=== PATIENT | female | born 1955 | race Two or more races ===

== ENCOUNTER 2016-05-22 17:03 | Inpatient (IN) | payer MEDICARE, MEDICAID ==
[~2016-05-22] VITALS: Ht 167.6 cm; Wt 83.0 kg
[~2016-05-22 17:03] MED LIST: CLON0.3T PO; CRAN450T3 PO; DOCU-25 PO; HYDR100T27 PO; HYDR25TA4 PO; LABE300T PO; LEVO750T21 PO; MAGN400O6 PO; MELA1TAB10 PO; NIFE60TA69 PO; POTA-88 PO; [UNRECOGNIZED DRUG - CODE] PO
[2016-05-22 18:14] LABS: ADD UA MICROSCOPIC YES; KETONES,URINE Trace (NEGATIVE); LEUKOCYTE ESTERASE ,URINE Moderate (NEGATIVE); PH,URINE 5.5 (5.0-8.0)
[2016-05-22 18:16] LABS: BASOPHILS % (AUTO) 0.6 % (0.0-2.0); DIFF TOTAL % 100 %; EOSINOPHILS # (AUTO) 0.1 /CMM (0.0-0.7); EOSINOPHILS % (AUTO) 2.2 % (0.0-6.0); HEMATOCRIT 33 % (33-45); HEMOGLOBIN 10.7 g/dL (11.5-14.8); LYMPHOCYTES # (AUTO) 2.5 /CMM (0.8-4.8); MEAN CORPUSCULAR HEMOGLOBIN 27 PG (26.0-33.0); MEAN CORPUSCULAR HGB CONC 33 g/dl (31.0-36.0); MEAN CORPUSCULAR VOLUME 81 fL (82-100); MONOCYTES # (AUTO) 0.5 /CMM (0.1-1.30); MONOCYTES % (AUTO) 7.1 % (2.0-12.0); NEUTROPHILS # (AUTO) 3.6 /CMM (1.8-8.9); NEUTROPHILS % (AUTO) 53.1 % (43.0-81.0); PLATELET COUNT (AUTO) 290 /CMM (150-450); RED BLOOD CELL COUNT(AUTO) 4.02 MIL/uL (4.0-5.2); WHITE BLOOD COUNT (AUTO) 6.7 K/uL (4.3-11.0)
[2016-05-22] MEDS ORDERED: BISA10SU8 RC (18:18)
[2016-05-22] MEDS ORDERED: NA P133E RC (18:18)
[2016-05-22 18:24] LABS: RBC,URINE 0-2 /HPF (0-2)
[2016-05-22 18:25] LABS: ADD URINE CULTURE YES; WBC,URINE 81-100 /HPF (0-3)
[2016-05-22] MEDS ORDERED: [UNRECOGNIZED DRUG - CODE] PO (18:34)
[2016-05-22] MEDS ORDERED: POTA8TAB3 PO (18:34)
[2016-05-22] MEDS ORDERED: DEXT1CAP3 PO (18:34)
[2016-05-22] MEDS ORDERED: METF500T4 PO (18:34)
[2016-05-22] MEDS ORDERED: SIMV20TA2 PO (18:34)
[2016-05-22] MEDS ORDERED: INSU100V11 SQ (18:42)
[2016-05-22 18:43] LABS: ANION GAP 16 (5-14); CALCIUM, SERUM 9.4 mg/dL (8.5-10.1); CARBON DIOXIDE 27 mmol/L (21-32); CHLORIDE 100 mmol/L (98-107); CREATININE 1.4 mg/dL (0.6-1.3); GFR 38 mL/min (>60); GLUCOSE 120 mg/dL (74-106); POTASSIUM 3.3 mmol/L (3.5-5.1); SODIUM SERUM 139 mmol/L (136-145); UREA NITROGEN, BLOOD 20 mg/dL (7-18)
[2016-05-22 18:46] LABS: INR 0.97 (0.87-1.13); PROTHROMBIN TIME 10.2 SECS (9.5-12.7)
[2016-05-22 18:49] LABS: ALANINE AMINOTRANSFERASE 36 U/L (12-78); ALBUMIN 3.9 g/dL (3.4-5.0); ASPARTATE AMINOTRANSFERASE 17 U/L (15-37); BILIRUBIN,DIRECT 0.1 mg/dL (0.0-0.2); BILIRUBIN,TOTAL 0.4 mg/dL (0.2-1.0); INDIRECT BILIRUBIN 0.3 mg/dL (0.0-1.1); TOTAL PROTEIN, SERUM 7.7 g/dL (6.4-8.2)
[2016-05-22 18:51] LABS: TROPONIN I < 0.017 ng/mL (0.00-0.056)
[2016-05-22] MEDS ORDERED: [UNRECOGNIZED DRUG - CODE] PO (18:51)
[2016-05-22] MEDS ORDERED: VITA1CAP PO (18:51)
[2016-05-22] MEDS ORDERED: FURO20TA PO (18:51)
[2016-05-22] MEDS ORDERED: MECL-102 PO (18:53)
[2016-05-22] MEDS ORDERED: CEFTRIAXONE 1GM BAG (ER ONLY) 1 GM/50 ML PIGGYBACK IV ONE (19:00)
[2016-05-22] MEDS ORDERED: CEFTRIAXONE 1GM BAG (ER ONLY) 50 ML IV ONE (19:03)
[2016-05-22] MEDS ORDERED: IV SET PRIMARY PUMP SET 1 EA INFUS.SET MC ONE (19:03)
[2016-05-22 19:30] VITALS: BP 120/78
[2016-05-22 19:30] LABS: LACTIC ACID 1.9 mmol/L (0.4-2.0)
[2016-05-22 20:00] VITALS: BP 120/78
[2016-05-22] MEDS ORDERED: IV NS 0.9% 1,000 ML IV PRN (21:55)
[2016-05-22] MEDS ORDERED: ACETAMINOPHEN 325 MG TABLET PO PRN (22:00)
[2016-05-22] MEDS ORDERED: ENOXAPARIN SODIUM 40 MG/0.4 ML DISP.SYRIN SQ SCH (22:00)
[2016-05-22] MEDS ORDERED: Z GUARD REMEDY 2 OZ OINT TP PRN (22:00)
[2016-05-22] MEDS ORDERED: MAGNESIUM HYDROXIDE 30 ML UDC PO PRN (22:00)
[2016-05-22] MEDS ORDERED: HYDROCODONE/APAP 5/325MG 1 EACH TABLET PO PRN (22:00)
[2016-05-22] MEDS ORDERED: ZOLPIDEM TARTRATE 5 MG TABLET PO PRN (22:00)
[2016-05-22] MEDS: PANTOPRAZOLE 40 MG TABLET.DR PO SCH (22:00)
[2016-05-22] MEDS ORDERED: MAG HYDROX/AL HYDROX/SIMETH 30 ML UDC PO PRN (22:00)
[2016-05-22] MEDS ORDERED: ENOXAPARIN SODIUM 40 MG/0.4 ML DISP.SYRIN SQ ONE (22:12)
[2016-05-22] MEDS ORDERED: IV NS 0.9% 1,000 ML ONE (22:13)
[2016-05-23 07:11] LABS: BASOPHILS % (AUTO) 0.6 % (0.0-2.0); DIFF TOTAL % 100 %; EOSINOPHILS # (AUTO) 0.1 /CMM (0.0-0.7); EOSINOPHILS % (AUTO) 2.5 % (0.0-6.0); HEMATOCRIT 32 % (33-45); HEMOGLOBIN 10.7 g/dL (11.5-14.8); LYMPHOCYTES # (AUTO) 1.8 /CMM (0.8-4.8); LYMPHOCYTES % (AUTO) 35.3 % (20.0-44.0); MEAN CORPUSCULAR HEMOGLOBIN 28 PG (26.0-33.0); MEAN CORPUSCULAR HGB CONC 34 g/dl (31.0-36.0); MEAN CORPUSCULAR VOLUME 82 fL (82-100); MONOCYTES # (AUTO) 0.4 /CMM (0.1-1.30); MONOCYTES % (AUTO) 7.5 % (2.0-12.0); NEUTROPHILS # (AUTO) 2.7 /CMM (1.8-8.9); NEUTROPHILS % (AUTO) 54.1 % (43.0-81.0); PLATELET COUNT (AUTO) 285 /CMM (150-450); WHITE BLOOD COUNT (AUTO) 5.1 K/uL (4.3-11.0)
[2016-05-23 07:18] LABS: ALBUMIN 3.6 g/dL (3.4-5.0); BILIRUBIN,TOTAL 0.4 mg/dL (0.2-1.0); CALCIUM, SERUM 9.2 mg/dL (8.5-10.1); PHOSPHORUS 3.2 mg/dL (2.5-4.9); TOTAL PROTEIN, SERUM 7.4 g/dL (6.4-8.2)
[2016-05-23 08:00] VITALS: BP 144/90
[2016-05-23] MEDS ORDERED: POTASSIUM CHLORIDE 20 MEQ TAB.PRT.SR PO ONE (08:45)
[2016-05-23] MEDS ORDERED: SECONDARY IV SET 1 EA INFUS.SET MC ONE (08:49)
[2016-05-23] MEDS: Magnesium 1GM/D5W 100ML PREMIX 100 ML IV SCH ×4 (08:52→13:21)
[2016-05-23] MEDS: PANTOPRAZOLE 40 MG TABLET.DR PO SCH (08:52)
[2016-05-23 09:36] VITALS: BP 144/95
[2016-05-23] MEDS: CEFTRIAXONE 1 G in IV D5W 50 ML IV SCH (09:46)
[2016-05-23] MEDS ORDERED: Z GUARD REMEDY 2 OZ OINT TP PRN (15:00)
[2016-05-23] MEDS: SIMVASTATIN 20 MG TABLET PO SCH ×2 (15:30→21:56)
[2016-05-23] MEDS ORDERED: MECLIZINE HCL 25 MG TABLET PO PRN (15:30)
[2016-05-23] MEDS ORDERED: NIFEdipine XL 60 MG TAB PO SCH (15:30)
[2016-05-23] MEDS: BISACODYL SUPP (10 MG) 10 MG/SUPP.RECT SUPP.RECT RC SCH (15:30)
[2016-05-23] MEDS: SENNOSIDES 8.6 MG TABLET PO SCH ×2 (15:30→21:56)
[2016-05-23] MEDS: MAGNESIUM HYDROXIDE 30 ML UDC PO SCH (15:30)
[2016-05-23] MEDS ORDERED: NA PHOS,M-B/NA PHOS,DI-BA 1 EA ENEMA RC PRN (15:30)
[2016-05-23 16:00] VITALS: BP 152/92
[2016-05-23] MEDS: DOCUSATE SODIUM 100 MG CAPSULE PO SCH (16:50)
[2016-05-23] MEDS: METFORMIN 500 MG TABLET PO SCH (16:51)
[2016-05-23] MEDS: hydrALAZINE HCL 50 MG TABLET PO SCH (16:51)
[2016-05-23] MEDS ORDERED: Medication Not On Formulary EA (Cranberry Extract (Cranberry) 450 MG) PO SCH (17:00)
[2016-05-23] MEDS: CLONIDINE HCL 0.1 MG TABLET PO SCH (17:28)
[2016-05-23 20:00] VITALS: BP 133/81
[2016-05-23] MEDS: NIFEdipine (10MG) 10 MG CAPSULE PO SCH (21:57)
[2016-05-23] MEDS: ENOXAPARIN SODIUM 40 MG/0.4 ML DISP.SYRIN SQ SCH (21:59)
[2016-05-23 22:00] VITALS: BP 143/92
[2016-05-24] MEDS: CLONIDINE HCL 0.1 MG TABLET PO SCH ×3 (01:35→16:32)
[2016-05-24] MEDS ORDERED: NIFEdipine (10MG) 10 MG CAPSULE ONE ×2 (05:27→05:31)
[2016-05-24] MEDS: NIFEdipine (10MG) 10 MG CAPSULE PO SCH ×3 (05:44→21:00)
[2016-05-24 06:46] LABS: BASOPHILS % (AUTO) 0.3 % (0.0-2.0); DIFF TOTAL % 100 %; EOSINOPHILS # (AUTO) 0.1 /CMM (0.0-0.7); HEMATOCRIT 37 % (33-45); HEMOGLOBIN 12.2 g/dL (11.5-14.8); LYMPHOCYTES % (AUTO) 35.7 % (20.0-44.0); MEAN CORPUSCULAR HEMOGLOBIN 28 PG (26.0-33.0); MEAN CORPUSCULAR HGB CONC 33 g/dl (31.0-36.0); MEAN CORPUSCULAR VOLUME 84 fL (82-100); MONOCYTES # (AUTO) 0.4 /CMM (0.1-1.30); MONOCYTES % (AUTO) 7.5 % (2.0-12.0); NEUTROPHILS % (AUTO) 54.5 % (43.0-81.0); PLATELET COUNT (AUTO) 304 /CMM (150-450); RED BLOOD CELL COUNT(AUTO) 4.36 MIL/uL (4.0-5.2); WHITE BLOOD COUNT (AUTO) 5.5 K/uL (4.3-11.0)
[2016-05-24 06:51] LABS: POTASSIUM 3.1 mmol/L (3.5-5.1)
[2016-05-24 08:00] VITALS: BP 147/101
[2016-05-24] MEDS: METFORMIN 500 MG TABLET PO SCH ×2 (08:03→16:32)
[2016-05-24] MEDS: PANTOPRAZOLE 40 MG TABLET.DR PO SCH (08:03)
[2016-05-24] MEDS: hydrALAZINE HCL 50 MG TABLET PO SCH ×3 (08:03→16:32)
[2016-05-24] MEDS: DOCUSATE SODIUM 100 MG CAPSULE PO SCH (08:03)
[2016-05-24] MEDS: MAGNESIUM HYDROXIDE 30 ML UDC PO SCH (08:03)
[2016-05-24] MEDS: VITAMIN B COMP W-C 1 TAB TABLET PO SCH (08:03)
[2016-05-24] MEDS: BISACODYL SUPP (10 MG) 10 MG/SUPP.RECT SUPP.RECT RC SCH (08:04)
[2016-05-24] MEDS: CEFTRIAXONE 1 G in IV D5W 50 ML IV SCH (08:45)
[2016-05-24] MEDS ORDERED: POTASSIUM CHLORIDE 20 MEQ POWDER PACKET PO ONE (12:30)
[2016-05-24 16:00] VITALS: BP 132/99
[2016-05-24] MEDS ORDERED: LEVOFLOXACIN (500MG) 500 MG TABLET PO SCH (17:00)
[2016-05-24 20:00] VITALS: BP 127/89
[2016-05-24] MEDS: ENOXAPARIN SODIUM 40 MG/0.4 ML DISP.SYRIN SQ SCH (21:01)
[2016-05-24] MEDS: SENNOSIDES 8.6 MG TABLET PO SCH (21:03)
[2016-05-24] MEDS: SIMVASTATIN 20 MG TABLET PO SCH (21:03)
[2016-05-24] MEDS: ONDANSETRON HCL/PF 4 MG/2 ML VIAL IVP PRN ×2 (21:42→21:58)
[2016-05-24] MEDS: MUPIROCIN OINT 2% 22 GM TUBE SCH (22:03)
[2016-05-25] MEDS: CLONIDINE HCL 0.1 MG TABLET PO SCH ×2 (01:29→08:56)
[2016-05-25] MEDS: NIFEdipine (10MG) 10 MG CAPSULE PO SCH (05:09)
[2016-05-25 08:00] VITALS: BP_SYST 112; BP_SYST 123; BP_DIAS 77; BP_DIAS 84
[2016-05-25] MEDS: MAGNESIUM HYDROXIDE 30 ML UDC PO SCH (08:55)
[2016-05-25] MEDS: PANTOPRAZOLE 40 MG TABLET.DR PO SCH (08:55)
[2016-05-25] MEDS: BISACODYL SUPP (10 MG) 10 MG/SUPP.RECT SUPP.RECT RC SCH (08:55)
[2016-05-25 08:56] VITALS: BP 112/77
[2016-05-25] MEDS: hydrALAZINE HCL 50 MG TABLET PO SCH (08:56)
[2016-05-25] MEDS: METFORMIN 500 MG TABLET PO SCH (08:56)
[2016-05-25] MEDS: VITAMIN B COMP W-C 1 TAB TABLET PO SCH (08:56)
[2016-05-25] MEDS: DOCUSATE SODIUM 100 MG CAPSULE PO SCH (08:56)
[2016-05-25] MEDS: MUPIROCIN OINT 2% 22 GM TUBE SCH (08:58)
== END 2016-05-25 11:15 | DRG 689 ==
LOC: ER 17:05 → MED 19:49
PROVIDERS: ADMIT Internal Medicine; ATTEND Internal Medicine
DX: N39.0 Urinary tract infection, site not specified (principal); N17.0 Acute kidney failure with tubular necrosis; I69.854 Hemiplegia and hemiparesis following other cerebrovascular disease affecting left non-dominant side; Z93.1 Gastrostomy status; R13.10 Dysphagia, unspecified; E83.42 Hypomagnesemia; E87.6 Hypokalemia; E66.9 Obesity, unspecified; I10 Essential (primary) hypertension; K21.9 Gastro-esophageal reflux disease without esophagitis; D50.9 Iron deficiency anemia, unspecified; Z22.322 Carrier or suspected carrier of Methicillin resistant Staphylococcus aureus; B96.1 Klebsiella pneumoniae [K. pneumoniae] as the cause of diseases classified elsewhere
CPT/HCPCS: 36415; 70450-TC; 71010-TC; 80048-TC; 80053-TC; 80061-TC; 80076-TC; 81000-TC; 83605-TC; 83735-TC; 84100-TC; 84484-TC; 85025-TC; 85730-TC; 87040-TC; 87081-TC; 87086-TC; 87186-TC; 97001-TC; 97003-TC; A4606; J0696; J1650; J2405; J3475; J7030; J7060; Z7610

== ENCOUNTER 2016-07-08 21:38 | Emergency (ER) | payer MEDICARE, OTHER ==
[~2016-07-08 21:38] MED LIST changes: +BISA10SU8 RC; +DEXT1CAP3 PO; +FURO-145 PO; +INSU100V11 SQ; -LEVO750T21 PO; +MECL-102 PO; -MELA1TAB10 PO; +METF500T4 PO; +NA P133E RC; +NITR100C6 PO; -POTA-88 PO; +POTA8TAB3 PO; +SENN8.6T60 PO; +SIMV20TA2 PO; +VITA1CAP PO; -[UNRECOGNIZED DRUG - CODE] PO
[2016-07-08] MEDS ORDERED: CLONIDINE HCL 0.1 MG TABLET ONE (22:41)
[2016-07-08] MEDS ORDERED: LABETALOL HCL (100MG) 100 MG TABLET ONE (22:41)
[2016-07-08] MEDS ORDERED: CLONIDINE HCL 0.1 MG TABLET PO ONE (23:00)
[2016-07-08] MEDS ORDERED: LABETALOL HCL (100MG) 100 MG TABLET PO ONE (23:00)
== END 2016-07-09 02:30 | disposition home or self-care (01) ==
DX: F43.21 Adjustment disorder with depressed mood (principal); I10 Essential (primary) hypertension; Z86.73 Personal history of transient ischemic attack (TIA), and cerebral infarction without residual deficits; Z79.4 Long term (current) use of insulin; Z88.8 Allergy status to other drugs, medicaments and biological substances
CPT/HCPCS: 99283; A4606

== ENCOUNTER 2016-07-17 20:36 | Inpatient (IN) | payer MEDICARE, OTHER ==
[~2016-07-17] VITALS: Ht 165.1 cm; Wt 73.0 kg
[2016-07-17 20:53] LABS: BASOPHILS % (AUTO) 0.4 % (0.0-2.0); DIFF TOTAL % 100 %; EOSINOPHILS # (AUTO) 0.1 /CMM (0.0-0.7); EOSINOPHILS % (AUTO) 0.6 % (0.0-6.0); HEMATOCRIT 27 % (33-45); HEMOGLOBIN 9.1 g/dL (11.5-14.8); LYMPHOCYTES # (AUTO) 1.9 /CMM (0.8-4.8); LYMPHOCYTES % (AUTO) 19.3 % (20.0-44.0); MEAN CORPUSCULAR HEMOGLOBIN 27 PG (26.0-33.0); MEAN CORPUSCULAR HGB CONC 33 g/dl (31.0-36.0); MEAN CORPUSCULAR VOLUME 80 fL (82-100); MONOCYTES # (AUTO) 0.6 /CMM (0.1-1.30); MONOCYTES % (AUTO) 6.2 % (2.0-12.0); NEUTROPHILS # (AUTO) 7.1 /CMM (1.8-8.9); NEUTROPHILS % (AUTO) 73.5 % (43.0-81.0); PLATELET COUNT (AUTO) 497 /CMM (150-450); RED BLOOD CELL COUNT(AUTO) 3.43 MIL/uL (4.0-5.2); WHITE BLOOD COUNT (AUTO) 9.7 K/uL (4.3-11.0)
[2016-07-17 21:01] LABS: ANION GAP 21 (5-14); CALCIUM, SERUM 9.6 mg/dL (8.5-10.1); CARBON DIOXIDE 20 mmol/L (21-32); CHLORIDE 107 mmol/L (98-107); GFR 25 mL/min (>60); GLUCOSE 92 mg/dL (74-106); POTASSIUM 3.7 mmol/L (3.5-5.1); SODIUM SERUM 144 mmol/L (136-145); UREA NITROGEN, BLOOD 60 mg/dL (7-18)
[2016-07-17 21:07] LABS: KETONES,URINE Trace (NEGATIVE); LEUKOCYTE ESTERASE ,URINE Negative (NEGATIVE)
[2016-07-17 21:09] LABS: ALANINE AMINOTRANSFERASE 28 U/L (12-78); ALBUMIN 3.5 g/dL (3.4-5.0); ASPARTATE AMINOTRANSFERASE 20 U/L (15-37); BILIRUBIN,DIRECT 0.2 mg/dL (0.0-0.2); BILIRUBIN,TOTAL 0.6 mg/dL (0.2-1.0); INDIRECT BILIRUBIN 0.4 mg/dL (0.0-1.1); SALICYLATE 3.1 mg/dL (2.8-20.0); TOTAL PROTEIN, SERUM 8.5 g/dL (6.4-8.2)
[2016-07-17 21:11] LABS: ACETAMINOPHEN 0 ug/ml (10-30)
[2016-07-17 21:15] LABS: ADD UA MICROSCOPIC YES
[2016-07-17 21:48] LABS: ADD URINE CULTURE YES; RBC,URINE 0-2 /HPF (0-2); WBC,URINE 0-2 /HPF (0-3)
[2016-07-17 21:51] LABS: CANNABINOID, URINE NEGATIVE (NEGATIVE); PHENCYCLIDINE SCREEN,URINE NEGATIVE (NEGATIVE)
[2016-07-17] MEDS ORDERED: IV NS 0.9% 1,000 ML BAG IV ONE (22:30)
[2016-07-17] MEDS ORDERED: IV SET PRIMARY 1 EA INFUS.SET MC ONE (22:40)
[2016-07-17] MEDS ORDERED: IV NS 0.9% 1,000 ML ONE (22:40)
[2016-07-17] MEDS ORDERED: HYDR-552 PO (23:30)
[2016-07-17] MEDS ORDERED: TYL2T PO (23:30)
[2016-07-17] MEDS ORDERED: INSU100V11 SQ (23:30)
[2016-07-18] MEDS ORDERED: ACETAMINOPHEN 325 MG TABLET PO PRN ×2 (01:30→12:00)
[2016-07-18] MEDS ORDERED: MAG HYDROX/AL HYDROX/SIMETH 30 ML UDC PO PRN (01:30)
[2016-07-18] MEDS ORDERED: MAGNESIUM HYDROXIDE 30 ML UDC PO PRN ×2 (01:30→22:00)
[2016-07-18 02:55] VITALS: BP 143/86
[2016-07-18 07:17] LABS: CREATININE 1.6 mg/dL (0.6-1.3)
[2016-07-18] MEDS ORDERED: CRAN425C PO (08:13)
[2016-07-18] MEDS ORDERED: MAGN400O6 PO (08:13)
[2016-07-18] MEDS ORDERED: MULT-24 PO (08:13)
[2016-07-18 08:46] VITALS: BP 143/87
[2016-07-18] MEDS ORDERED: HYDROCODONE/APAP 5/325MG 1 EACH TABLET PO PRN (12:00)
[2016-07-18] MEDS ORDERED: DEXTROSE 50%-WATER 50 ML DISP.SYRIN IV PRN (12:00)
[2016-07-18] MEDS ORDERED: Medication Not On Formulary EA (Cranberry Extract (Cranberry) 425 MG) PO SCH (12:00)
[2016-07-18] MEDS ORDERED: INSULIN REGULAR, HUMAN 100 UNIT/ML 3 ML VIAL SQ PRN (12:00)
[2016-07-18] MEDS ORDERED: NA PHOS,M-B/NA PHOS,DI-BA 1 EA ENEMA RC PRN (12:00)
[2016-07-18] MEDS: BLOOD SUGAR DIAGNOSTIC 1 EACH STRIP IN SCH ×3 (12:25→21:01)
[2016-07-18] MEDS ORDERED: LABETALOL HCL 300 MG TABLET PO SCH (13:00)
[2016-07-18] MEDS: hydrALAZINE HCL 50 MG TABLET PO SCH ×2 (13:57→17:28)
[2016-07-18] MEDS: MULTIVITAMINS,THERAPEUTIC 1 UDTAB TABLET PO SCH (13:58)
[2016-07-18] MEDS: METFORMIN 500 MG TABLET PO SCH ×2 (13:58→17:31)
[2016-07-18] MEDS: CLONIDINE HCL 0.1 MG TABLET PO SCH ×2 (13:59→21:00)
[2016-07-18] MEDS ORDERED: NIFEdipine XL (30MG) 30 MG TAB PO SCH (14:18)
[2016-07-18 15:59] VITALS: BP 138/88
[2016-07-18 20:00] VITALS: BP 132/81
[2016-07-18] MEDS: LABETALOL HCL (100MG) 100 MG TABLET PO SCH (21:00)
[2016-07-18] MEDS: SENNOSIDES 8.6 MG TABLET PO SCH (21:00)
[2016-07-18] MEDS: NIFEdipine XL (30MG) 30 MG TAB PO SCH ×2 (21:00→21:03)
[2016-07-18] MEDS: QUETIAPINE FUMARATE 25 MG TABLET PO SCH (21:01)
[2016-07-18] MEDS: SIMVASTATIN 20 MG TABLET PO SCH (21:01)
[2016-07-19] MEDS: CLONIDINE HCL 0.1 MG TABLET PO SCH ×3 (04:53→21:00)
[2016-07-19] MEDS: NIFEdipine XL (30MG) 30 MG TAB PO SCH ×3 (04:54→21:00)
[2016-07-19] MEDS: LABETALOL HCL (100MG) 100 MG TABLET PO SCH ×3 (04:54→21:00)
[2016-07-19] MEDS: BLOOD SUGAR DIAGNOSTIC 1 EACH STRIP IN SCH ×4 (07:45→22:02)
[2016-07-19 08:00] VITALS: BP 101/67
[2016-07-19] MEDS: DOCUSATE SODIUM 100 MG CAPSULE PO SCH (08:07)
[2016-07-19] MEDS: METFORMIN 500 MG TABLET PO SCH (08:07)
[2016-07-19] MEDS: VIT B CMPLX 3/FA/VIT C/BIOTIN 1 TAB TABLET PO SCH (08:07)
[2016-07-19] MEDS: VENLAFAXINE XR 75 MG CAP.SR.24H PO SCH (08:07)
[2016-07-19] MEDS: MULTIVITAMINS,THERAPEUTIC 1 UDTAB TABLET PO SCH (08:07)
[2016-07-19] MEDS: hydrALAZINE HCL 50 MG TABLET PO SCH ×3 (08:08→17:04)
[2016-07-19] MEDS ORDERED: HYDROCHLOROTHIAZIDE 25 MG TABLET PO SCH (09:00)
[2016-07-19] MEDS ORDERED: POTASSIUM CHLORIDE 20 MEQ TAB.PRT.SR PO SCH (09:00)
[2016-07-19] MEDS ORDERED: BISACODYL SUPP (10 MG) 10 MG/SUPP.RECT SUPP.RECT RC SCH (12:00)
[2016-07-19 12:24] VITALS: BP 138/98
[2016-07-19 16:00] VITALS: BP 136/93
[2016-07-19 17:04] VITALS: BP 121/86
[2016-07-19 20:00] VITALS: BP 126/87
[2016-07-19] MEDS: SIMVASTATIN 20 MG TABLET PO SCH (22:00)
[2016-07-19] MEDS: QUETIAPINE FUMARATE 25 MG TABLET PO SCH (22:00)
[2016-07-19] MEDS: SENNOSIDES 8.6 MG TABLET PO SCH (22:00)
[2016-07-20] MEDS: NIFEdipine XL (30MG) 30 MG TAB PO SCH ×4 (05:00→21:00)
[2016-07-20] MEDS: LABETALOL HCL (100MG) 100 MG TABLET PO SCH ×4 (05:00→21:00)
[2016-07-20] MEDS: CLONIDINE HCL 0.1 MG TABLET PO SCH ×4 (05:00→21:00)
[2016-07-20 07:40] VITALS: BP 156/89
[2016-07-20] MEDS: BLOOD SUGAR DIAGNOSTIC 1 EACH STRIP IN SCH ×4 (07:55→22:47)
[2016-07-20 08:00] LABS: ALBUMIN 3.6 g/dL (3.4-5.0); BASOPHILS % (AUTO) 0.4 % (0.0-2.0); BILIRUBIN,TOTAL 0.6 mg/dL (0.2-1.0); CALCIUM, SERUM 10.1 mg/dL (8.5-10.1); CREATININE 1.3 mg/dL (0.6-1.3); DIFF TOTAL % 100 %; EOSINOPHILS % (AUTO) 0.4 % (0.0-6.0); HEMATOCRIT 27 % (33-45); HEMOGLOBIN 9.1 g/dL (11.5-14.8); LYMPHOCYTES # (AUTO) 1.6 /CMM (0.8-4.8); LYMPHOCYTES % (AUTO) 17.3 % (20.0-44.0); MEAN CORPUSCULAR HEMOGLOBIN 29 PG (26.0-33.0); MEAN CORPUSCULAR HGB CONC 34 g/dl (31.0-36.0); MEAN CORPUSCULAR VOLUME 87 fL (82-100); MONOCYTES # (AUTO) 0.7 /CMM (0.1-1.30); MONOCYTES % (AUTO) 7.2 % (2.0-12.0); NEUTROPHILS % (AUTO) 74.7 % (43.0-81.0); PHOSPHORUS 2.7 mg/dL (2.5-4.9); PLATELET COUNT (AUTO) 395 /CMM (150-450); POTASSIUM 3.4 mmol/L (3.5-5.1); RED BLOOD CELL COUNT(AUTO) 3.08 MIL/uL (4.0-5.2); TOTAL PROTEIN, SERUM 8.8 g/dL (6.4-8.2); WHITE BLOOD COUNT (AUTO) 9.4 K/uL (4.3-11.0)
[2016-07-20] MEDS: hydrALAZINE HCL 50 MG TABLET PO SCH ×3 (08:55→17:47)
[2016-07-20] MEDS: DOCUSATE SODIUM 100 MG CAPSULE PO SCH (08:58)
[2016-07-20] MEDS: VIT B CMPLX 3/FA/VIT C/BIOTIN 1 TAB TABLET PO SCH (08:58)
[2016-07-20] MEDS: VENLAFAXINE XR 75 MG CAP.SR.24H PO SCH (08:59)
[2016-07-20] MEDS: MULTIVITAMINS,THERAPEUTIC 1 UDTAB TABLET PO SCH (08:59)
[2016-07-20] MEDS: POTASSIUM CHLORIDE 20 MEQ TAB.PRT.SR PO SCH (10:11)
[2016-07-20 16:00] VITALS: BP 105/104
[2016-07-20 20:00] VITALS: BP 110/68
[2016-07-20] MEDS: SENNOSIDES 8.6 MG TABLET PO SCH (22:41)
[2016-07-20] MEDS: QUETIAPINE FUMARATE 25 MG TABLET PO SCH (22:42)
[2016-07-20] MEDS: SIMVASTATIN 20 MG TABLET PO SCH (22:43)
[2016-07-21] MEDS: CLONIDINE HCL 0.1 MG TABLET PO SCH ×3 (05:00→21:43)
[2016-07-21] MEDS: LABETALOL HCL (100MG) 100 MG TABLET PO SCH ×3 (05:00→21:42)
[2016-07-21] MEDS: NIFEdipine XL (30MG) 30 MG TAB PO SCH ×3 (05:00→21:44)
[2016-07-21] MEDS: BLOOD SUGAR DIAGNOSTIC 1 EACH STRIP IN SCH ×4 (07:53→21:44)
[2016-07-21] MEDS: hydrALAZINE HCL 50 MG TABLET PO SCH ×3 (08:40→18:04)
[2016-07-21] MEDS: MULTIVITAMINS,THERAPEUTIC 1 UDTAB TABLET PO SCH (08:40)
[2016-07-21] MEDS: VENLAFAXINE XR 75 MG CAP.SR.24H PO SCH (08:41)
[2016-07-21] MEDS: DOCUSATE SODIUM 100 MG CAPSULE PO SCH (08:41)
[2016-07-21] MEDS: VIT B CMPLX 3/FA/VIT C/BIOTIN 1 TAB TABLET PO SCH (08:41)
[2016-07-21] MEDS: POTASSIUM CHLORIDE 20 MEQ TAB.PRT.SR PO SCH (08:42)
[2016-07-21 10:03] VITALS: BP 122/88
[2016-07-21 15:42] VITALS: BP 115/67
[2016-07-21 20:06] VITALS: BP 121/87
[2016-07-21] MEDS: QUETIAPINE FUMARATE 25 MG TABLET PO SCH (21:43)
[2016-07-21] MEDS: SENNOSIDES 8.6 MG TABLET PO SCH (21:43)
[2016-07-21] MEDS: SIMVASTATIN 20 MG TABLET PO SCH (21:44)
[2016-07-22] MEDS: NIFEdipine XL (30MG) 30 MG TAB PO SCH ×3 (06:50→21:00)
[2016-07-22] MEDS: CLONIDINE HCL 0.1 MG TABLET PO SCH ×3 (06:51→21:00)
[2016-07-22] MEDS: LABETALOL HCL (100MG) 100 MG TABLET PO SCH ×3 (06:52→21:00)
[2016-07-22 08:00] VITALS: BP 123/90
[2016-07-22] MEDS: BLOOD SUGAR DIAGNOSTIC 1 EACH STRIP IN SCH ×4 (08:07→21:36)
[2016-07-22] MEDS: DOCUSATE SODIUM 100 MG CAPSULE PO SCH (08:10)
[2016-07-22] MEDS: MULTIVITAMINS,THERAPEUTIC 1 UDTAB TABLET PO SCH (08:10)
[2016-07-22] MEDS: VENLAFAXINE XR 75 MG CAP.SR.24H PO SCH (08:10)
[2016-07-22] MEDS: VIT B CMPLX 3/FA/VIT C/BIOTIN 1 TAB TABLET PO SCH (08:10)
[2016-07-22] MEDS: POTASSIUM CHLORIDE 20 MEQ TAB.PRT.SR PO SCH (08:11)
[2016-07-22] MEDS: hydrALAZINE HCL 50 MG TABLET PO SCH ×3 (08:21→16:15)
[2016-07-22 16:00] VITALS: BP 132/91
[2016-07-22 20:00] VITALS: BP 151/60
[2016-07-22] MEDS: QUETIAPINE FUMARATE 25 MG TABLET PO SCH (21:35)
[2016-07-22] MEDS: SENNOSIDES 8.6 MG TABLET PO SCH (21:35)
[2016-07-22] MEDS: SIMVASTATIN 20 MG TABLET PO SCH (21:36)
[2016-07-23 03:49] VITALS: BP 95/60
[2016-07-23] MEDS: LABETALOL HCL (100MG) 100 MG TABLET PO SCH ×2 (05:00→13:00)
[2016-07-23] MEDS: NIFEdipine XL (30MG) 30 MG TAB PO SCH ×2 (05:00→13:00)
[2016-07-23] MEDS: CLONIDINE HCL 0.1 MG TABLET PO SCH ×2 (05:00→13:00)
[2016-07-23 07:46] LABS: CALCIUM, SERUM 9.4 mg/dL (8.5-10.1); CREATININE 1.4 mg/dL (0.6-1.3); POTASSIUM 3.4 mmol/L (3.5-5.1)
[2016-07-23 08:15] VITALS: BP 117/73
[2016-07-23] MEDS: hydrALAZINE HCL 50 MG TABLET PO SCH ×2 (08:15→13:00)
[2016-07-23] MEDS: DOCUSATE SODIUM 100 MG CAPSULE PO SCH (08:15)
[2016-07-23] MEDS: VENLAFAXINE XR 75 MG CAP.SR.24H PO SCH (08:15)
[2016-07-23] MEDS: MULTIVITAMINS,THERAPEUTIC 1 UDTAB TABLET PO SCH (08:15)
[2016-07-23] MEDS: POTASSIUM CHLORIDE 20 MEQ TAB.PRT.SR PO SCH (08:15)
[2016-07-23] MEDS: VIT B CMPLX 3/FA/VIT C/BIOTIN 1 TAB TABLET PO SCH (08:15)
[2016-07-23] MEDS: BLOOD SUGAR DIAGNOSTIC 1 EACH STRIP IN SCH ×2 (08:21→12:00)
== END 2016-07-23 12:20 | DRG 885 ==
LOC: ER 20:40 → GPS 07-18 00:53
PROVIDERS: ADMIT Psychiatry & Neurology Psychiatry
DX: F33.3 Major depressive disorder, recurrent, severe with psychotic symptoms (principal); N17.0 Acute kidney failure with tubular necrosis; N18.9 Chronic kidney disease, unspecified; I69.354 Hemiplegia and hemiparesis following cerebral infarction affecting left non-dominant side; R45.851 Suicidal ideations; J44.9 Chronic obstructive pulmonary disease, unspecified; K21.9 Gastro-esophageal reflux disease without esophagitis; E11.22 Type 2 diabetes mellitus with diabetic chronic kidney disease; I12.9 Hypertensive chronic kidney disease with stage 1 through stage 4 chronic kidney disease, or unspecified chronic kidney disease; Z79.84 Long term (current) use of oral hypoglycemic drugs; D64.9 Anemia, unspecified
CPT/HCPCS: 36415; 80048-TC; 80053-TC; 80061-TC; 80076-TC; 80305; 81000-TC; 82565-TC; 82962-TC; 83735-TC; 84100-TC; 84132-TC; 85025-TC; 87081-TC; 87086-TC; A4606; G0480; G6039-TC; J1815; J7030; Z7610

== ENCOUNTER 2016-08-09 21:16 | Inpatient (IN) | payer MEDICARE, OTHER ==
[~2016-08-09] VITALS: Ht 167.6 cm; Wt 68.0 kg
[~2016-08-09 21:16] MED LIST changes: +CRAN425C PO; -CRAN450T3 PO; -DEXT1CAP3 PO; -FURO-145 PO; +HYDR-552 PO; -MECL-102 PO; +MULT-24 PO; -NITR100C6 PO; +TYL2T PO
--- NOTE | 2016-08-09 21:20 | NUR ---
PT JASPER TURNER FROM SNF WITH A C/O FAILURE TO THRIVE. PT IS REFUSING TO SPEAK. PT REFUSED EMT TO TAKE HER TEMP. PT EVENTUALLY OPENED HER MOUTH AND TEMP WAS TAKEN. PT WENT TO BED #1. PT IS ON THE MONITOR AND CONTINUOUS PULSE OX.
--- NOTE | 2016-08-09 21:48 | NUR ---
PT STATED: "I'M THIRSTY. I WANT COLD WATER". PT REC'D A CUP OF COLD WATER AND TOLERATED PO WELL. PT NODDED TO YES AND NO QUESTIONS. WHEN ASKED IF SHE WAS HUNGRY PT NODDED "NO". PT ALSO NODDED "YES" TO REFUSING HER HOME MEDICATIONS. PT DENIES FEELING DEPRESSED. PT SHRUGGED WHEN ASKED WHY SHE WAS NOT EATING OR TAKING HER MEDICATIONS.
--- NOTE | 2016-08-09 22:30 | NUR ---
PT REC'D A COCA COLA. PT TOLERATED PO WELL.
[2016-08-09 22:31] LABS: BASOPHILS % (AUTO) 0.6 % (0.0-2.0); EOSINOPHILS # (AUTO) 0.1 /CMM (0.0-0.7); EOSINOPHILS % (AUTO) 0.9 % (0.0-6.0); HEMATOCRIT 27 % (33-45); HEMOGLOBIN 8.8 g/dL (11.5-14.8); LYMPHOCYTES # (AUTO) 2.6 /CMM (0.8-4.8); LYMPHOCYTES % (AUTO) 39.4 % (20.0-44.0); MEAN CORPUSCULAR HEMOGLOBIN 26 PG (26.0-33.0); MEAN CORPUSCULAR HGB CONC 32 g/dl (31.0-36.0); MEAN CORPUSCULAR VOLUME 80 fL (82-100); MONOCYTES # (AUTO) 0.5 /CMM (0.1-1.30); MONOCYTES % (AUTO) 6.7 % (2.0-12.0); NEUTROPHILS # (AUTO) 3.5 /CMM (1.8-8.9); NEUTROPHILS % (AUTO) 52.4 % (43.0-81.0); PLATELET COUNT (AUTO) 292 /CMM (150-450); RDW COEFFICIENT OF VARIATION 15.9 (11.5-15.0); RED BLOOD CELL COUNT(AUTO) 3.43 MIL/uL (4.0-5.2); WHITE BLOOD COUNT (AUTO) 6.7 K/uL (4.3-11.0)
[2016-08-09 22:44] LABS: CALCIUM, SERUM 9.9 mg/dL (8.5-10.1); CARBON DIOXIDE 20 mmol/L (21-32); CHLORIDE 107 mmol/L (98-107); GFR 25 mL/min (>60); GLUCOSE 69 mg/dL (74-106); POTASSIUM 3.7 mmol/L (3.5-5.1); SODIUM SERUM 147 mmol/L (136-145); UREA NITROGEN, BLOOD 29 mg/dL (7-18)
[2016-08-09 22:48] LABS: ACETAMINOPHEN 0 ug/ml (10-30); ALANINE AMINOTRANSFERASE 18 U/L (12-78); ALBUMIN 3.4 g/dL (3.4-5.0); ALCOHOL, BLOOD < 3 mg/dL (0-0); ALKALINE PHOSPHATASE 69 U/L (46-116); ASPARTATE AMINOTRANSFERASE 10 U/L (15-37); BILIRUBIN,DIRECT 0.1 mg/dL (0.0-0.2); BILIRUBIN,TOTAL 0.5 mg/dL (0.2-1.0); SALICYLATE 4.3 mg/dL (2.8-20.0)
[2016-08-09 22:56] LABS: THYROID STIMULATING HORMONE 0.556 uIU/mL (0.358-3.74)
[2016-08-09] MEDS ORDERED: DEXTROSE 50%-WATER 50 ML DISP.SYRIN IVP ONE (23:00)
[2016-08-09] MEDS ORDERED: IV NS 0.9% 1,000 ML BAG IV ONE (23:00)
[2016-08-09] MEDS ORDERED: DEXTROSE 50%-WATER 50 ML DISP.SYRIN ONE (23:06)
[2016-08-09] MEDS ORDERED: IV NS 0.9% 1,000 ML ONE (23:06)
[2016-08-09] MEDS ORDERED: IV SET PRIMARY 1 EA INFUS.SET MC ONE (23:06)
[2016-08-09 23:11] LABS: ACETONE, SERUM SMALL (NEGATIVE)
[2016-08-09 23:19] LABS: LACTIC ACID 0.7 mmol/L (0.4-2.0)
--- NOTE | 2016-08-10 00:50 | NUR ---
PT APPEARS TO BE RESTING COMFORTABLY WITH NO S/S OF PAIN OR DISTRESS.
[2016-08-10] MEDS ORDERED: IV 1/2NS 1000 ML 1,000 ML IV PRN (01:12)
--- NOTE | 2016-08-10 01:17 | NUR ---
BED 203
[2016-08-10 01:26] LABS: CALCIUM, SERUM 9.2 mg/dL (8.5-10.1); CREATININE 1.9 mg/dL (0.6-1.3); POTASSIUM 3.4 mmol/L (3.5-5.1)
--- NOTE | 2016-08-10 01:27 | NUR ---
REPORT GIVEN TO MIKE ELLIOTT
--- NOTE | 2016-08-10 01:27 | NUR ---
Savannah teran in [facility] - 08/10/16 at 0127 by JESSENIA REPORT GIVEN TO MIKE ELLIOTT
[2016-08-10] MEDS ORDERED: Z GUARD REMEDY 2 OZ OINT TP PRN (01:30)
[2016-08-10] MEDS ORDERED: HYDROCODONE/APAP 5/325MG 1 EACH TABLET PO PRN (01:30)
[2016-08-10] MEDS ORDERED: ZOLPIDEM TARTRATE 5 MG TABLET PO PRN (01:30)
[2016-08-10] MEDS ORDERED: MAGNESIUM HYDROXIDE 30 ML UDC PO PRN (01:30)
[2016-08-10] MEDS ORDERED: INSULIN REGULAR, HUMAN 100 UNIT/ML 3 ML VIAL SQ PRN (01:30)
[2016-08-10] MEDS ORDERED: DEXTROSE 50%-WATER 50 ML DISP.SYRIN IV PRN (01:30)
[2016-08-10] MEDS ORDERED: MAG HYDROX/AL HYDROX/SIMETH 30 ML UDC PO PRN (01:30)
--- NOTE | 2016-08-10 01:45 | NUR ---
MS/RN NOTES RECEIVED PT. FROM ER VIA [facility]. PT. IS AWAKE, ALERT AND ORIENTED X 2. BREATHING EVEN AND UNLABORED ON ROOM AIR. NO SOB, RESPIRATORY DISTRESS OR COMPLAINTS OF PAIN NOTED AT THIS TIME. ORIENTED PT. TO ROOM. PT. WITH LEFT HAND 20 GAUGE IV SALINE LOCK PRESENT, PATENT AND INTACT. BED IN LOWEST POSITION, CALL LIGHT WITHIN REACH, WILL CONTINUE TO MONITOR.
[2016-08-10] MEDS ORDERED: IV SET PRIMARY PUMP SET 1 EA INFUS.SET MC ONE (01:51)
[2016-08-10] MEDS ORDERED: DEXTROSE 50%-WATER 50 ML DISP.SYRIN ONE (01:54)
--- NOTE | 2016-08-10 01:59 | NUR ---
MS/RN NOTES NOTIFIED MD. SMART PT. BLOOD SUGAR 59 MG/DL. RECHECKED PT. BG 53 MG/DL. 1 AMP D50 ADMINISTERED ORDERED FOR BLOOD SUGAR LESS THAN 60. PT. IS RESPONSIVE. NO S/S OF HYPO/HYPERGLYCEMIA NOTED AT THIS TIME. PER DR SMART NEW ORDER: CHANGE GLUCOSE CHECK TO Q2H FOR MONITORING. NEW ORDER: CHANGE IV FLUIDS TO D5 1/2 NS @ 100ML/HR. CLARIFIED WITH MD SMART PT. SLIDING SCALE, PER DR. SMART ONLY COVER ACCUCHECKS WITH MEALS, THE Q2H ACCUCHECKS ARE FOR MONITORING ONLY DO NOT COVER WITH INSULIN. WILL CARRY OUT ORDERS. WILL CONTINUE TO MONITOR.
--- NOTE | 2016-08-10 02:01 | NUR ---
RN NOTES: MADE DR SMART AWARE OF BLOOD SUGAR CHECKED AT 58 MG/DL INITIALLY THEN RECHECKED AT 53 MG/DL. ADMINISTERED 1 AMP OF D50. ALSO ORDERED TO HAVE IVF CHANGEDTO D51/2NS.
[2016-08-10] MEDS ORDERED: IV D5/0.45 NACL 1,000 ML IV ONE ×2 (02:04→23:42)
[2016-08-10] MEDS: IV D5/0.45 NACL 1,000 ML IV PRN ×3 (02:10→23:48)
--- NOTE | 2016-08-10 02:21 | NUR ---
MS/RN NOTES NOTIFIED DR. SMART THAT UPON REASSESSMENT OF PT. BLOOD SUGAR AFTER ADMINISTRATION OF D50 PT. BG= 190MG/DL. PT. IS RESPONSIVE AND NO S/S OF HYPO/HYPERGLYCEMIA NOTED AT THIS TIME. PER DR. SMART NEW ORDER: D/C ACHS ACCUCHECKS AND MONITOR Q2H FOR NOW. WILL CARRY OUT ORDERS. WILL CONTINUE TO MONITOR.
[2016-08-10] MEDS ORDERED: POTASSIUM CHLORIDE 20 MEQ TAB.PRT.SR PO ONE ×2 (03:23→03:30)
--- NOTE | 2016-08-10 03:25 | NUR ---
MS/RN NOTES NOTIFIED MD. SMART PT. LABS RESULTED AND PT. POTASSIUM IS 3.4. ALSO NOTIFIED MD SMART PT. CAME FROM [facility] WITH A COPY OF A SURROGATE DECISION MAKER FORM STATING THAT THE PT. IS NO CPR, YES HOSPITALIZATION, YES IV FLUIDS, NO TUBE FEEDINGS AND NO HOSPICE. CALLED TO VERIFY PT. CODE STATUS WITH PT. SISTER WHO IS LISTED THE PT. PRIMARY DECISION MAKER. UNABLE TO REACH PT. SISTER, LEFT MESSAGE TO CALL BACK. PER DR. SMART NEW ORDERS: GIVE KDUR 20 MEQ PO X1 NOW. NEW ORDER: CHANGE CODE STATUS TO DNR. WILL CARRY OUT ORDERS. WILL CONTINUE TO MONITOR.
[2016-08-10] MEDS: BLOOD SUGAR DIAGNOSTIC 1 EACH STRIP IN SCH ×7 (04:10→21:13)
--- NOTE | 2016-08-10 05:11 | NUR ---
MS/RN NOTES LAST ACCUCHECK DONE AT 0410 AM = 97MG/DL. NO S/S OF HYPO/HYPERGLYCEMIA NOTED. NEXT ACCUCHECK TO BE DONE AT 0610 AM. WILL CONTINUE TO MONITOR.
--- NOTE | 2016-08-10 06:27 | NUR ---
MS/RN NOTES NOTIFIED MD. SMART PT. MOST RECENT BLOOD SUGAR IS 81 MG/DL WHILE RECEIVING D5 1/2 NS @ 100 ML/HR. PT. CONTINUES TO HAVE VERY POOR PO INTAKE DESPITE ENCOURAGEMENT. NO S/S OF HYPO/HYPERGLYCEMIA NOTED. PER DR. SMART NEW ORDER: CHANGE ACCUCHECKS TO Q4 HOURS. WILL CARRY OUT ORDER WILL CONTINUE TO MONITOR.
--- NOTE | 2016-08-10 06:50 | NUR ---
MS/RN NOTES PT. LYING IN BED RESTING. BREATHING EVEN AND UNLABORED ON ROOM AIR. NO SOB, RESPIRATORY DISTRESS OR COMPLAINTS OF PAIN NOTED AT THIS TIME. PT. WITH LEFT HAND 20 GAUGE PERIPHERAL IV SALINE PRESENT, PATENT AND INTACT. PT. BLOOD SUGAR MONITORED CLOSELY THROUGHOUT SHIFT. NO S/S OF HYPO/HYPERGLYCEMIA NOTED AT THIS TIME. ALL PT. NEEDS MET. PT. OFFLOADED. TURNED AND REPOSITIONED Q2H AND NEEDED. BED IN LOWEST POSITION, CALL LIGHT WITHIN REACH, WILL ENDORSE TO DAYSHIFT NURSE FOR CONTINUITY OF CARE.
[2016-08-10 07:03] LABS: ALBUMIN 3.2 g/dL (3.4-5.0); BILIRUBIN,TOTAL 0.4 mg/dL (0.2-1.0); CALCIUM, SERUM 9.1 mg/dL (8.5-10.1); CREATININE 1.8 mg/dL (0.6-1.3); PHOSPHORUS 2.4 mg/dL (2.5-4.9); POTASSIUM 3.2 mmol/L (3.5-5.1); TOTAL PROTEIN, SERUM 7.5 g/dL (6.4-8.2)
[2016-08-10 07:07] LABS: BASOPHILS % (AUTO) 0.5 % (0.0-2.0); EOSINOPHILS # (AUTO) 0.1 /CMM (0.0-0.7); EOSINOPHILS % (AUTO) 1.4 % (0.0-6.0); HEMATOCRIT 24 % (33-45); LYMPHOCYTES # (AUTO) 2.4 /CMM (0.8-4.8); LYMPHOCYTES % (AUTO) 39.1 % (20.0-44.0); MEAN CORPUSCULAR HEMOGLOBIN 28 PG (26.0-33.0); MEAN CORPUSCULAR HGB CONC 33 g/dl (31.0-36.0); MEAN CORPUSCULAR VOLUME 84 fL (82-100); MONOCYTES # (AUTO) 0.4 /CMM (0.1-1.30); MONOCYTES % (AUTO) 6.5 % (2.0-12.0); NEUTROPHILS # (AUTO) 3.2 /CMM (1.8-8.9); NEUTROPHILS % (AUTO) 52.5 % (43.0-81.0); PLATELET COUNT (AUTO) 244 /CMM (150-450); RDW COEFFICIENT OF VARIATION 15.8 (11.5-15.0); WHITE BLOOD COUNT (AUTO) 6.1 K/uL (4.3-11.0)
[2016-08-10 07:12] LABS: MAGNESIUM 1.2 mg/dL (1.8-2.4)
[2016-08-10] MEDS ORDERED: BLOOD SUGAR DIAGNOSTIC 1 EACH STRIP IN SCH (07:30)
--- NOTE | 2016-08-10 07:30 | NUR ---
MS/RN AM NOTES PT. IN BED, AAO X 2-3, VERY WITHDRAWN, BUT ABLE TO STATE NEEDS, ON RA, BREATHING EVEN AND UNLABORED, NO SOB, RESPIRATORY DISTRESS OR COMPLAINTS OF PAIN NOTED AT THIS TIME. PT. WITH LEFT HAND 20 GAUGE PERIPHERAL IV WITH D5 1/2 NS AT 100 ML/HR INFUSING WELL. SITE CLEAR. NO S/S OF HYPO/HYPERGLYCEMIA NOTED AT THIS TIME. ON CCHO DIET. ON DIAPERS, WITH LEFT SIDED WEAKNESS. SEE NURSING FLOWSHEET FOR SKIN ISSUES. WILL TURN AND REPOSITION Q2H AND NEEDED. BED IN LOWEST POSITION, CALL LIGHT WITHIN REACH, WILL CONTINUE TO MONITOR.
[2016-08-10] MEDS ORDERED: MAG30ORA PO (07:31)
[2016-08-10] MEDS ORDERED: POTA-88 PO (07:31)
[2016-08-10] MEDS ORDERED: VENL75CA56 PO (07:31)
[2016-08-10] MEDS ORDERED: QUET25TA PO (07:31)
[2016-08-10 08:00] VITALS: BP 140/79
[2016-08-10] MEDS: PANTOPRAZOLE 40 MG TABLET.DR PO SCH (08:57)
--- NOTE | 2016-08-10 09:00 | NUR ---
MS RN NOTES ADMINISTERED DUE MEDS.
--- NOTE | 2016-08-10 09:00 | NUR ---
MS RN NOTES ACCUCHECK DONE. BS 106 MG/DL. NO INSULIN COVERAGE AT THIS TIME.
--- NOTE | 2016-08-10 09:31 | NUR ---
MS RN NOTES DR. CARLOS ALBERTO MALAVE NOTIFIED OF MAGNESIUM LEVEL 1.2
[2016-08-10] MEDS ORDERED: SECONDARY IV SET 1 EA INFUS.SET MC ONE (12:41)
[2016-08-10] MEDS ORDERED: POTASSIUM CHLORIDE 20 MEQ TAB.PRT.SR PO SCH (12:45)
[2016-08-10] MEDS: Magnesium 1GM/D5W 100ML PREMIX 100 ML IV SCH ×2 (12:46→14:02)
--- NOTE | 2016-08-10 12:55 | NUR ---
MS RN NOTES ACCUCHECK DONE. BS 105 MG/DL. NO INSULIN COVERAGE AT THIS TIME. MAGNESIUM IV BAG #1 STARTED. [1246].
--- NOTE | 2016-08-10 14:02 | NUR ---
MS RN NOTES MAGNESIUM IV BAG #2 STARTED. VISITORS/FRIENDS AT BEDSIDE.
[2016-08-10] MEDS ORDERED: K PHOS NEUTRAL 250 MG TABLET PO ONE (15:30)
[2016-08-10 16:00] VITALS: BP 136/81
--- NOTE | 2016-08-10 17:11 | NUR ---
MS RN NOTES ACCUCHECK DONE. BS 110 MG/DL. NO INSULIN COVERAGE AT THIS TIME.
[2016-08-10 18:00] VITALS: BP 136/81
[2016-08-10] MEDS ORDERED: CLONIDINE HCL 0.1 MG TABLET PO PRN (19:00)
[2016-08-10] MEDS ORDERED: NA PHOS,M-B/NA PHOS,DI-BA 1 EA ENEMA RC PRN (19:00)
--- NOTE | 2016-08-10 19:15 | NUR ---
MS/RN NOTES RECEIVED PT. LYING IN BED. AWAKE, ALERT AND ORIENTED X3. BREATHING EVEN AND UNLABORED ON ROOM AIR. NO SOB, RESPIRATORY DISTRESS OR COMPLAINTS OF PAIN NOTED AT THIS TIME. PT. IS WITHDRAWN BUT ABLE TO VERBALIZE NEEDS. PT. WITH LEFT HAND 20 GAUGE PERIPHERAL IV PRESENT, PATENT AND INTACT ADMINISTERING TO PT. D5 1/2 NS @ 100 ML/HR. NO S/S OF HYPO/HYPERGLYCEMIA NOTED AT THIS TIME. BED IN LOWEST POSITION, CALL LIGHT WITHIN REACH, WILL CONTINUE TO MONITOR.
[2016-08-10 20:05] VITALS: BP 140/90
[2016-08-10] MEDS: NIFEdipine XL 60 MG TAB PO SCH (21:00)
[2016-08-10] MEDS: LABETALOL HCL (100MG) 100 MG TABLET PO SCH (21:00)
[2016-08-10] MEDS ORDERED: SIMVASTATIN 20 MG TABLET ONE (21:44)
[2016-08-10] MEDS ORDERED: SENNOSIDES 8.6 MG TABLET ONE (21:44)
[2016-08-10] MEDS ORDERED: NIFEdipine XL (30MG) 30 MG TAB PO ONE ×2 (21:44→22:32)
[2016-08-10] MEDS ORDERED: QUETIAPINE FUMARATE 25 MG TABLET ONE (21:45)
[2016-08-10] MEDS: SENNOSIDES 8.6 MG TABLET PO SCH (21:53)
[2016-08-10] MEDS: QUETIAPINE FUMARATE 25 MG TABLET PO SCH (21:53)
[2016-08-10] MEDS: SIMVASTATIN 20 MG TABLET PO SCH (21:53)
--- NOTE | 2016-08-10 22:20 | NUR ---
MS/RN NOTES UNABLE TO BARCODE PT. PROCARDIA XL 60 MG TAB PO ORDERED. PER RN REO ASSET MANAGER PROCARDIA XL 60 MG TAB UNAVAILABLE. ON HAND IS PROCARDIA XL 30MG TAB. PER RN REO ASSET MANAGER OK TO NOT BARCODE ADMINISTER 2 PROCARDIA XL 30 MG TABS PO ORDERED. PT. BP 139/88 HR 60. ADMINISTERED MEDICATION TO PT. ORDERED. WILL CONTINUE TO MONITOR.
[2016-08-11] MEDS: BLOOD SUGAR DIAGNOSTIC 1 EACH STRIP IN SCH ×6 (01:05→20:07)
[2016-08-11] MEDS: LABETALOL HCL (100MG) 100 MG TABLET PO SCH ×3 (05:00→20:07)
[2016-08-11] MEDS ORDERED: NIFEdipine XL (30MG) 30 MG TAB PO ONE (05:26)
[2016-08-11] MEDS: NIFEdipine XL 60 MG TAB PO SCH ×3 (05:32→20:04)
--- NOTE | 2016-08-11 05:33 | NUR ---
MS/RN NOTES UNABLE TO BARCODE PT. PROCARDIA XL 60 MG TAB PO ORDERED. ADMINISTERED 2 PROCARDIA XL 30 MG TABS PO ORDERED. PT. BP 139/91 HR 61. WILL CONTINUE TO MONITOR.
--- NOTE | 2016-08-11 06:41 | NUR ---
MS/RN NOTES PT. LYING IN BED RESTING. BREATHING EVEN AND UNLABORED ON ROOM AIR. NO SOB, RESPIRATORY DISTRESS OR COMPLAINTS OF PAIN NOTED AT THIS TIME. PT. WITH LEFT HAND 20 GAUGE PERIPHERAL IV PRESENT, PATENT AND INTACT ADMINISTERING TO PT. D5 1/2 NS @ 100 ML/HR. PT. TOLERATING WELL. NO REDNESS OR S/S OF INFILTRATION NOTED AT IV SITE. NO S/S OF HYPO/HYPERGLYCEMIA NOTED AT THIS TIME AND THROUGHOUT SHIFT. ALL PT. NEEDS MET. PT. OFFLOADED. TURNED AND REPOSITIONED Q2H AND NEEDED. BED IN LOWEST POSITION, CALL LIGHT WITHIN REACH, WILL ENDORSE TO DAYSHIFT NURSE FOR CONTINUITY OF CARE.
[2016-08-11 07:04] LABS: CALCIUM, SERUM 8.5 mg/dL (8.5-10.1); CREATININE 1.3 mg/dL (0.6-1.3); MAGNESIUM 1.3 mg/dL (1.8-2.4)
[2016-08-11 07:08] LABS: POTASSIUM 2.6 mmol/L (3.5-5.1)
--- NOTE | 2016-08-11 07:10 | NUR ---
MS/RN NOTES CALLED [facility] TO NOTIFY DRUG SAFETY DATA MANAGEMENT SPECIALIST DR. MALAVE OF PT. CRITICAL LAB RESULT, POTASSIUM =2.6. UNABLE TO REACH DR. MALAVE AT THIS TIME. PER [facility] DR. MALAVE IS PAGED. WAITING FOR DR. MALAVE TO CALL BACK.
--- NOTE | 2016-08-11 07:30 | NUR ---
MS/RN AM NOTES PT. IN BED, AAO X 2-3, MORE ARTICULATE TODAY, ABLE TO STATE NEEDS, ON RA, BREATHING EVEN AND UNLABORED, NO SOB, RESPIRATORY DISTRESS OR COMPLAINTS OF PAIN NOTED AT THIS TIME. PT. WITH LEFT HAND 20 GAUGE PERIPHERAL IV WITH D5 1/2 NS AT 100 ML/HR INFUSING WELL. SITE CLEAR. NO S/S OF HYPO/HYPERGLYCEMIA NOTED AT THIS TIME. ON CCHO DIET. ON DIAPERS, WITH LEFT SIDED WEAKNESS. SEE NURSING FLOWSHEET FOR SKIN ISSUES. WILL TURN AND REPOSITION Q2H AND NEEDED. BED IN LOWEST POSITION, CALL LIGHT WITHIN REACH, WILL CONTINUE TO MONITOR.
[2016-08-11 08:00] VITALS: BP 147/98
[2016-08-11] MEDS: METFORMIN 500 MG TABLET PO SCH ×3 (08:00→17:04)
[2016-08-11] MEDS: PANTOPRAZOLE 40 MG TABLET.DR PO SCH (08:12)
[2016-08-11] MEDS: VENLAFAXINE XR 75 MG CAP.SR.24H PO SCH (08:13)
[2016-08-11] MEDS: MULTIVITAMINS,THERAPEUTIC 1 UDTAB TABLET PO SCH (08:13)
[2016-08-11] MEDS: POTASSIUM CHLORIDE 20 MEQ TAB.PRT.SR PO SCH (08:13)
[2016-08-11] MEDS: hydrALAZINE HCL 50 MG TABLET PO SCH ×3 (08:13→17:03)
--- NOTE | 2016-08-11 09:30 | NUR ---
MS RN NOTES ADMINISTERED DUE MEDS. ACCUCHECK DONE. BS 122 MG/DL. NO INSULIN COVERAGE AT THIS TIME.
[2016-08-11] MEDS ORDERED: IV SET PRIMARY PUMP SET 1 EA INFUS.SET MC ONE (09:39)
[2016-08-11] MEDS: IV D5/0.45 NACL 1,000 ML IV PRN ×2 (09:44→23:23)
--- NOTE | 2016-08-11 09:48 | NUR ---
MS RN NOTES PER DR. BECKHAM, WILL REPLETE K 2.6 WITH 60 MEQ KCL IV [6 BAGS].
[2016-08-11] MEDS: POTASSIUM CL. PREMIX PERIPHER. 50 ML IV SCH ×6 (10:11→15:33)
[2016-08-11] MEDS: Magnesium 1GM/D5W 100ML PREMIX 100 ML IV SCH ×4 (12:38→15:33)
--- NOTE | 2016-08-11 12:48 | NUR ---
MS RN NOTES ACCUCHECK DONE. BS 139 MG/DL. NO INSULIN COVERAGE AT THIS TIME.
[2016-08-11] MEDS ORDERED: K PHOS NEUTRAL 250 MG TABLET PO ONE (14:00)
[2016-08-11 16:00] VITALS: BP 126/88
--- NOTE | 2016-08-11 17:07 | NUR ---
MS RN NOTES ACCUCHECK DONE. BS 148 MG/DL. NO INSULIN COVERAGE AT THIS TIME.
[2016-08-11 18:00] VITALS: BP 126/88
--- NOTE | 2016-08-11 18:23 | NUR ---
MS RN NOTES NO SIGNIFICANT CHANGE IN CONDITION. RESTING COMFORTABLY. PM CARE DONE. IVF RUNNING TO LEFT ARM. ALL DUE MEDICATIONS GIVEN. 6 BAGS KCL AND 4 BAGS MAGNESIUM COMPLETED DOSE. TURNED AND REPOSITIONED. ALL NEEDS MET. WILL ENDORSE TO NEXT SHIFT FOR HELDER.
--- NOTE | 2016-08-11 19:43 | NUR ---
RECEIVED PATIENT IN BED, ALERT AND ORIENTED X3, CALM, NO SOB, NO RESPIRATORY DISTRESS, ON ROOM AIR, 02 SAT 95%, DENIES ANY PAIN AT THIS TIME, ABLE TO VERBALIZE NEEDS, LEFT HAND PERIPHERAL LINE IS INFUSING WELL, KEPT SAFE AND COMFORTABLE, CALL LIGHT WITHIN REACH.
[2016-08-11 20:00] VITALS: BP 126/83
--- NOTE | 2016-08-11 20:14 | NUR ---
BP126/86 HR 136, GIVEN PROCARDIA AND LABETALOL, WILL RE-CHECK BP
--- NOTE | 2016-08-11 20:15 | NUR ---
BG 126 MG/DL, NO INSULIN COVERAGE.
[2016-08-11] MEDS: QUETIAPINE FUMARATE 25 MG TABLET PO SCH (21:26)
[2016-08-11] MEDS: SIMVASTATIN 20 MG TABLET PO SCH (21:27)
[2016-08-11] MEDS: SENNOSIDES 8.6 MG TABLET PO SCH (21:27)
[2016-08-12 01:00] VITALS: BP 110/78
[2016-08-12] MEDS: BLOOD SUGAR DIAGNOSTIC 1 EACH STRIP IN SCH ×6 (01:06→22:00)
--- NOTE | 2016-08-12 01:10 | NUR ---
BG 113 MG/DL, CONTINUE D5 1/2 NS AT 100CC/HR. PROVIDED SNACKS AT THE BEDSIDE. ENCOURAGE PATIENT TO EAT WHILE AWAKE
[2016-08-12] MEDS: NIFEdipine XL 60 MG TAB PO SCH ×3 (04:25→21:50)
--- NOTE | 2016-08-12 04:29 | NUR ---
BG 118 MG/DL. NO INSULIN COVERAGE, ONLY MONITORING.
[2016-08-12] MEDS: LABETALOL HCL (100MG) 100 MG TABLET PO SCH ×3 (05:38→21:51)
--- NOTE | 2016-08-12 06:28 | NUR ---
PATIENT IS ALERT AND ORIENTED X2, CALM, NO SOB, NO DISTRESS, DENIES ANY PAIN AT THIS TIME. COMPLIANT WITH MEDICATION, COMPLIANT WITH ACCUCHECK Q4HRS. BLOOD SUGAR IS STEADY OVER 100'S, ENCOURAGED TO INCREASED ORAL INTAKE BY PROVIDING SNACKS AT THE BEDSIDE, PATIENT PREFERS JUST SIPS OF WATER. LEFT HAND PERIPHERAL LINE IS INFUSING WELL WITH D51/2 NS AT 100 CC/HR. NO ADVERSE CHANGE OF CONDITION DURING SHIFT. ALL DUE MEDICATIONS GIVEN. NEEDS ATTENDED, CALL LIGHT WITHIN REACH.
[2016-08-12 07:06] LABS: CALCIUM, SERUM 8.1 mg/dL (8.5-10.1); CREATININE 1.1 mg/dL (0.6-1.3); MAGNESIUM 1.5 mg/dL (1.8-2.4); PHOSPHORUS 1.4 mg/dL (2.5-4.9)
[2016-08-12 07:36] LABS: POTASSIUM 2.8 mmol/L (3.5-5.1)
--- NOTE | 2016-08-12 07:43 | NUR ---
MS/RN Patient received Patient received from overnight associate. Appears comfortable, denies any pain or discomfort. Call light within reach, bed in low setting, side rails X3 in upright position. Will continue to monitor and ensure safety.
--- NOTE | 2016-08-12 07:45 | NUR ---
MS/RN K+ Received call from lab, K+ level today is 2.8, will inform .
[2016-08-12 08:00] VITALS: BP 110/80
[2016-08-12] MEDS: POTASSIUM CHLORIDE 20 MEQ TAB.PRT.SR PO SCH ×4 (08:41→15:00)
[2016-08-12] MEDS: PANTOPRAZOLE 40 MG TABLET.DR PO SCH (08:41)
[2016-08-12] MEDS: VENLAFAXINE XR 75 MG CAP.SR.24H PO SCH (08:41)
[2016-08-12] MEDS: MULTIVITAMINS,THERAPEUTIC 1 UDTAB TABLET PO SCH (08:41)
[2016-08-12] MEDS: METFORMIN 500 MG TABLET PO SCH ×3 (08:42→17:04)
[2016-08-12] MEDS: hydrALAZINE HCL 50 MG TABLET PO SCH ×3 (08:42→17:05)
[2016-08-12] MEDS: IV D5/0.45 NACL 1,000 ML IV PRN (08:43)
--- NOTE | 2016-08-12 09:05 | NUR ---
MS/RN K+ order Order given by Dr Ortiz to give K+ 60meq IV.
--- NOTE | 2016-08-12 09:30 | NUR ---
MS/RN Blood sugar Blood sugar at 0900 - 137.
[2016-08-12] MEDS: POTASSIUM CL. PREMIX PERIPHER. 50 ML IV SCH ×2 (09:39→10:17)
--- NOTE | 2016-08-12 09:57 | NUR ---
MS/RN Vaccination status [facility] called, spoke with Brady for vaccination status: -Flu - 02/22/16 -PNA - 08/2012
[2016-08-12] MEDS: ACETAMINOPHEN 325 MG TABLET PO PRN ×2 (10:17→21:52)
[2016-08-12] MEDS ORDERED: SET RED CAP 1 EA INFUS.SET MC ONE (10:58)
[2016-08-12] MEDS ORDERED: SECONDARY IV SET 1 EA INFUS.SET MC ONE (10:58)
[2016-08-12] MEDS: Magnesium 1GM/D5W 100ML PREMIX 100 ML IV SCH ×2 (11:03→12:12)
--- NOTE | 2016-08-12 11:10 | NUR ---
WOUND CARE CONSULT: PATIENT SEEN AND SKIN ASSESSMENT DONE. PATIENT ALERT, SLURRED SPEECH NOTED, LEFT SIDED PARALYSIS, INCONTINENT, HAS DIFFICULTY TURNING AND REPOSITIONING, MARCOS 12. SEE TODAY'S SKIN ASSESSMENT IN PCS ALONG WITH RECOMMENDATIONS. RECOMMEND MOISTURE PROTECTION AND PRESSURE PREVENTION MEASURES ORDERED. ALL DISCUSSED WITH NURSING STAFF. IN AGREEMENT WITH PLAN OF CARE. Addendum: 08/12/16 at 1112 by YAHAIRA ANGELES Amended: Links added. Addendum: 08/12/16 at 1123 by YAHAIRA WALKERU WOUND CARE CONSULT CONT'D: PATIENT ON YELITZA ISOFLEX LOW AIR LOSS BED.
[2016-08-12] MEDS: HYDROGEL DRESSING 90 GM TUBE TP SCH (12:54)
--- NOTE | 2016-08-12 13:06 | NUR ---
MS/RN Blood sugar Blood sugar at 1300 - 132.
--- NOTE | 2016-08-12 13:07 | NUR ---
MS/RN K+ new order Patient refusing to have any further K+ infused, stating that its too painful. Dr Ortiz made aware, order changed to oral.
--- NOTE | 2016-08-12 14:00 | NUR ---
MS/RN Mag 1.5 Mag level 1.5 - replaced with 2gm IVPB.
[2016-08-12 16:00] VITALS: BP 127/89
[2016-08-12] MEDS ORDERED: K PHOS NEUTRAL 250 MG TABLET PO ONE (16:30)
[2016-08-12] MEDS: ONDANSETRON HCL/PF 4 MG/2 ML VIAL IVP PRN (17:04)
--- NOTE | 2016-08-12 18:00 | NUR ---
MS/RN Turn and repositioning Patient has been turned and repositioned every 2-3 hours throughout the shift, to relieve any sacral pressure.
--- NOTE | 2016-08-12 18:28 | NUR ---
MS/RN End note Remains stable, continues to refuse to eat, stating "I just can't, the look of food just repulses me". Encouraged to take just a couple bites and to ensure that oral intake is increased. Call light within reach, will endorse to shift superintendent caustic cresylate.
--- NOTE | 2016-08-12 19:30 | NUR ---
MS/RN PATIENT STABLE. NO RESPIRATORY DISTRESS NOTED. PATIENT DENIES ANY PAIN AT THIS TIME. IV SITE INTACT WITH NO REDNESS NOTED. BED LOCKED AND IN LOWEST POSITION. SIDE RAILS UP, CALL LIGHT WITHIN REACH. WILL CONTINUE TO MONITOR.
[2016-08-12 20:00] VITALS: BP 125/92
[2016-08-12] MEDS: SENNOSIDES 8.6 MG TABLET PO SCH (21:51)
[2016-08-12] MEDS: QUETIAPINE FUMARATE 25 MG TABLET PO SCH (21:51)
[2016-08-12] MEDS: SIMVASTATIN 20 MG TABLET PO SCH (22:00)
[2016-08-12 22:57] VITALS: BP 125/92
[2016-08-13] MEDS: IV D5/0.45 NACL 1,000 ML IV PRN ×2 (01:22→12:51)
[2016-08-13] MEDS: BLOOD SUGAR DIAGNOSTIC 1 EACH STRIP IN SCH ×5 (01:23→17:17)
--- NOTE | 2016-08-13 01:30 | NUR ---
MS RN NOTE BLOOD SUGAR 100. WILL CONTINUE TO MONITOR.
[2016-08-13] MEDS: NIFEdipine XL 60 MG TAB PO SCH ×2 (05:40→12:57)
[2016-08-13] MEDS: LABETALOL HCL (100MG) 100 MG TABLET PO SCH ×2 (05:41→12:57)
[2016-08-13 06:09] LABS: BASOPHILS % (AUTO) 0.6 % (0.0-2.0); EOSINOPHILS # (AUTO) 0.1 /CMM (0.0-0.7); EOSINOPHILS % (AUTO) 1.6 % (0.0-6.0); HEMATOCRIT 26 % (33-45); HEMOGLOBIN 8.6 g/dL (11.5-14.8); LYMPHOCYTES # (AUTO) 1.7 /CMM (0.8-4.8); LYMPHOCYTES % (AUTO) 36.7 % (20.0-44.0); MEAN CORPUSCULAR HEMOGLOBIN 26 PG (26.0-33.0); MEAN CORPUSCULAR HGB CONC 33 g/dl (31.0-36.0); MEAN CORPUSCULAR VOLUME 79 fL (82-100); MONOCYTES # (AUTO) 0.5 /CMM (0.1-1.30); MONOCYTES % (AUTO) 10.5 % (2.0-12.0); NEUTROPHILS # (AUTO) 2.3 /CMM (1.8-8.9); NEUTROPHILS % (AUTO) 50.6 % (43.0-81.0); PLATELET COUNT (AUTO) 229 /CMM (150-450); RDW COEFFICIENT OF VARIATION 16.1 (11.5-15.0); WHITE BLOOD COUNT (AUTO) 4.6 K/uL (4.3-11.0)
--- NOTE | 2016-08-13 06:23 | NUR ---
MS RN NOTE PATIENT STABLE. ALL NEEDS MET AND ATTENDED TO. BLOOD SUGAR 113. TURNED AND REPOSITIONED EVERY TWO HOURS. BED LOCKED AND IN LOWEST POSITION. SIDE RAILS UP, CALL LIGHT WITHIN REACH. WILL ENDORSE TO DAY SHIFT FOR HELDER.
[2016-08-13 06:32] LABS: CALCIUM, SERUM 8.1 mg/dL (8.5-10.1); CREATININE 1.1 mg/dL (0.6-1.3); MAGNESIUM 1.6 mg/dL (1.8-2.4); PHOSPHORUS 1.8 mg/dL (2.5-4.9)
[2016-08-13 06:35] LABS: POTASSIUM 2.8 mmol/L (3.5-5.1)
--- NOTE | 2016-08-13 06:51 | NUR ---
MS RN NOTE RECEIVED CRITICAL LEVEL FOR POTASSIUM 2.8 FROM LAB. ENDORSED TO MIKE ZAMORA FOR HELDER.
[2016-08-13 07:30] VITALS: BP 110/78
--- NOTE | 2016-08-13 07:30 | NUR ---
MS/RN Patient received Patient received from night cleaner. Call light within reach, bed in low setting, brakes locked, side rails X3in upright position. Will continue to monitor and ensure safety.
[2016-08-13 08:03] VITALS: BP 110/78
[2016-08-13] MEDS: METFORMIN 500 MG TABLET PO SCH ×3 (08:10→17:19)
[2016-08-13] MEDS: MULTIVITAMINS,THERAPEUTIC 1 UDTAB TABLET PO SCH (08:10)
[2016-08-13] MEDS: VENLAFAXINE XR 75 MG CAP.SR.24H PO SCH (08:10)
[2016-08-13] MEDS: POTASSIUM CHLORIDE 20 MEQ TAB.PRT.SR PO SCH (08:10)
[2016-08-13] MEDS: PANTOPRAZOLE 40 MG TABLET.DR PO SCH (08:10)
[2016-08-13] MEDS: HYDROGEL DRESSING 90 GM TUBE TP SCH (08:11)
[2016-08-13] MEDS: hydrALAZINE HCL 50 MG TABLET PO SCH ×4 (08:11→17:17)
--- NOTE | 2016-08-13 08:12 | NUR ---
MS/RN Medications Morning medications administered as ordered. No problems noted swallowing pills.
--- NOTE | 2016-08-13 09:00 | NUR ---
MS/RN K+ level K+ level this morning 2.9, MD to be informed.
[2016-08-13] MEDS ORDERED: POTASSIUM CHLORIDE 20 MEQ TAB.PRT.SR PO ONE ×3 (10:00→16:30)
[2016-08-13] MEDS: ONDANSETRON HCL/PF 4 MG/2 ML VIAL IVP PRN (10:28)
--- NOTE | 2016-08-13 10:31 | NUR ---
MS/RN S/B Dr Purdy Seen by Dr Purdy - K+ to be replaced and then for possible discharge back to SNF later today.
--- NOTE | 2016-08-13 11:00 | NUR ---
MS/RN Orders Order given by Dr Purdy to replace K+ level with another 40meq for total of 60meq today. Level to be checked one hour post medication.
--- NOTE | 2016-08-13 12:07 | NUR ---
MS/RN Exit care Exit care perpared, chart copied ready for discharge.
--- NOTE | 2016-08-13 12:36 | NUR ---
MS/RN Repeat level Repeat K+ level 2.9. Per Dr Purdy, give further 60meq PO, and repeat level in one hour. If greater than 3.3, may discharge to SNF.
[2016-08-13] MEDS ORDERED: MAGNESIUM OXIDE 400 MG TABLET PO ONE (15:00)
--- NOTE | 2016-08-13 15:00 | NUR ---
MS/RN K+ level Level now 3.2, per Dr Purdy, give further 40meq now and may discharge to SNF.
[2016-08-13 15:33] VITALS: BP 112/84
[2016-08-13 16:15] VITALS: BP 112/84
--- NOTE | 2016-08-13 17:37 | NUR ---
MS/RN Report called Report called to SNF, spoke to Kamilah. Patient will be going to [facility], room 16BB. Med response called, earliest machine operator picker will be at 0.
--- NOTE | 2016-08-13 18:39 | NUR ---
MS/RN End note Transport arranged for cook pickled meat at 2130 (per Justin, earliest time they had). Ready for discharge, heplock only left to be removed. Will endorse to fast food shift lead.
[2016-08-13] MEDS ORDERED: K PHOS NEUTRAL 250 MG TABLET PO ONE (19:00)
[2016-08-13 20:00] VITALS: BP 100/70
--- NOTE | 2016-08-13 20:30 | NUR ---
MS RN NOTE: EMT ARRIVED TO TRANSFER PATIENT TO [facility]. DISCHARGE PAPERWORK COMPLETED AND SIGNED DURING DAY SHIFT. REPORT GIVEN TO BOUCHRA AT FACILITY DURING DAY SHIFT, PATIENT TO BE GOING TO ROOM 16BB. REPORT GIVEN TO EMT AND PAPERWORK GIVEN TO EMT FOR PATIENT AND FACILITY. PHOS TAB GIVEN PER MD ORDER. BLOOD SUGAR LEVEL 123MG/DL, NO INSULIN NEEDED. IV TO LEFT HAND REMOVED, COVERED WITH GAUZE, PRESSURE APPLIED AND SECURED WITH TAPE. VITAL SIGNS STABLE. PATIENT OFF THE FLOOR WITH EMT IN STABLE CONDITION WITH BELONGINGS.
== END 2016-08-13 20:25 | DRG 682 ==
LOC: ER 21:24 → MEDSG2 08-10 01:31
PROVIDERS: ADMIT Family Medicine; ATTEND Nurse Practitioner Acute Care
DX: N17.0 Acute kidney failure with tubular necrosis (principal); G93.40 Encephalopathy, unspecified; E87.0 Hyperosmolality and hypernatremia; F32.3 Major depressive disorder, single episode, severe with psychotic features; R62.7 Adult failure to thrive; E83.39 Other disorders of phosphorus metabolism; E78.5 Hyperlipidemia, unspecified; E87.6 Hypokalemia; E86.0 Dehydration; Z86.73 Personal history of transient ischemic attack (TIA), and cerebral infarction without residual deficits; I10 Essential (primary) hypertension; K21.9 Gastro-esophageal reflux disease without esophagitis; E83.42 Hypomagnesemia; D64.9 Anemia, unspecified; M19.90 Unspecified osteoarthritis, unspecified site; E11.9 Type 2 diabetes mellitus without complications; Z66 Do not resuscitate; Z79.899 Other long term (current) drug therapy
CPT/HCPCS: 36415; 80048-TC; 80053-TC; 80061-TC; 80076-TC; 82010-TC; 82945-TC; 82962-TC; 83605-TC; 83735-TC; 84100-TC; 84132-TC; 84443-TC; 85025-TC; 87081-TC; A4606; A6248; G0480; G6039-TC; J2405; J3475; J3480; J3490; J7030; Z7610

== ENCOUNTER 2017-09-03 12:05 | Emergency (ER) | payer MEDICARE, OTHER ==
[~2017-09-03] VITALS: Ht 167.6 cm; Wt 81.6 kg
[~2017-09-03 12:05] MED LIST changes: -CRAN425C PO; +DOCU-141 PO; -DOCU-25 PO; -HYDR25TA4 PO; -INSU100V11 SQ; +MAG30ORA PO; -MAGN400O6 PO; +POTA-88 PO; -POTA8TAB3 PO; +QUET25TA PO; +VENL75CA56 PO
[2017-09-03 12:55] LABS: APPEARANCE,URINE Cloudy (CLEAR); BILIRUBIN,URINE Negative (NEGATIVE); BLOOD, URINE Negative Ery/uL (NEGATIVE); COLOR,URINE Yellow (YELLOW); KETONES,URINE Negative (NEGATIVE); LEUKOCYTE ESTERASE ,URINE Small (NEGATIVE); NITRITE, URINE Positive (NEGATIVE); PROTEIN,URINE 30 mg/dl (NEGATIVE); UGLUCOSE Negative (NEGATIVE); UROBILINOGEN,URINE 0.2 EU/dL (0.2)
--- NOTE | 2017-09-03 13:06 | NUR ---
URINE OBTAINED SENT TO LAB
[2017-09-03 13:11] LABS: BACTERIA,URINE Many /HPF (None Seen); RBC,URINE 0-3 /HPF (0-2); SQUAMOUS EPITHELIAL CELL,UR Few /HPF (None Seen); WBC,URINE 20-50 /HPF (0-3)
[2017-09-03 13:39] VITALS: BP 124/68
--- NOTE | 2017-09-03 13:43 | NUR ---
PT DC BACK TO SNF IN STABLE CONDITION. LEAVING VIA AMBULANCE. REPORT GIVEN TO EMT. PRESCRIPTIONS GIVEN. NO FURTHER COMPLAINTS.
== END 2017-09-03 13:42 | disposition home or self-care (01) ==
LOC: ER 12:10
DX: N39.0 Urinary tract infection, site not specified (principal); I10 Essential (primary) hypertension; K21.9 Gastro-esophageal reflux disease without esophagitis; E11.9 Type 2 diabetes mellitus without complications; M19.90 Unspecified osteoarthritis, unspecified site; E78.5 Hyperlipidemia, unspecified; E87.6 Hypokalemia; Z86.73 Personal history of transient ischemic attack (TIA), and cerebral infarction without residual deficits; Z88.8 Allergy status to other drugs, medicaments and biological substances
CPT/HCPCS: 81000-TC; 87086-TC; 87186-TC; A4606; Z7610

== ENCOUNTER → 2017-11-14 | Emergency (ER) | payer MEDICARE, OTHER ==
[~2017-11-14] VITALS: Ht 172.7 cm; Wt 99.8 kg
[~2017-11-14] MED LIST changes: +CEFTRIAXONE 1GM BAG (ER ONLY) 100 ML IV ONE; +CEFTRIAXONE 2 G in IV D5W 50 ML IV ONE; -LABE300T PO; +LABE300T2 PO; +LACT20SO4 PO; +MAGN400O6 PO; -METF500T4 PO; +METF500T6 PO
--- NOTE | 2017-11-14 18:40 | NUR ---
BBPA FROM [facility]: PSYCHE EVAL, VERBALLY ABUSIVE. SEEN BY RETREADER FOR EVAL. NAD NOTED. VSS. SAFETY AND COMFORT MEASURES PROVIDED. WILL MONITOR.
[2017-11-14 18:57] LABS: BASOPHILS % (AUTO) 0.6 % (0.0-2.0); EOSINOPHILS % (AUTO) 2.8 % (0.0-6.0); HEMATOCRIT 30 % (33-45); HEMOGLOBIN 10.4 g/dL (11.5-14.8); LYMPHOCYTES # (AUTO) 2.2 /CMM (0.8-4.8); LYMPHOCYTES % (AUTO) 36.1 % (20.0-44.0); MEAN CORPUSCULAR HEMOGLOBIN 28 PG (26.0-33.0); MEAN CORPUSCULAR HGB CONC 35 g/dl (31.0-36.0); MEAN CORPUSCULAR VOLUME 80 fL (82-100); MONOCYTES # (AUTO) 0.4 /CMM (0.1-1.30); MONOCYTES % (AUTO) 6.5 % (2.0-12.0); NEUTROPHILS # (AUTO) 3.3 /CMM (1.8-8.9); PLATELET COUNT (AUTO) 259 /CMM (150-450); RDW COEFFICIENT OF VARIATION 14.1 (11.5-15.0); RED BLOOD CELL COUNT(AUTO) 3.74 MIL/uL (4.0-5.2); WHITE BLOOD COUNT (AUTO) 6.1 K/uL (4.3-11.0)
--- NOTE | 2017-11-14 18:57 | NUR ---
DINNER TRAY ORDERED.
--- NOTE | 2017-11-14 19:00 | NUR ---
URINE SAMPLE OBTAINED, SENT.
[2017-11-14 19:06] LABS: CALCIUM, SERUM 9.6 mg/dL (8.5-10.1); CARBON DIOXIDE 26 mmol/L (21-32); CHLORIDE 106 mmol/L (98-107); CREATININE 1.3 mg/dL (0.6-1.3); GLUCOSE 111 mg/dL (74-106); POTASSIUM 3.6 mmol/L (3.5-5.1); SODIUM SERUM 141 mmol/L (136-145); UREA NITROGEN, BLOOD 21 mg/dL (7-18)
[2017-11-14 19:15] LABS: APPEARANCE,URINE Cloudy (CLEAR); BILIRUBIN,URINE Negative (NEGATIVE); BLOOD, URINE Negative Ery/uL (NEGATIVE); COLOR,URINE Yellow (YELLOW); KETONES,URINE Negative (NEGATIVE); LEUKOCYTE ESTERASE ,URINE Small (NEGATIVE); NITRITE, URINE Positive (NEGATIVE); PH,URINE 5.5 (5.0-8.0); PROTEIN,URINE Trace mg/dl (NEGATIVE); UGLUCOSE Negative (NEGATIVE); UROBILINOGEN,URINE 0.2 EU/dL (0.2)
--- NOTE | 2017-11-14 19:15 | NUR ---
SOLO HENLEY AT BS.
[2017-11-14 19:17] LABS: ALANINE AMINOTRANSFERASE 45 U/L (12-78); ALBUMIN 3.5 g/dL (3.4-5.0); ALCOHOL, BLOOD < 3 mg/dL (0-0); ALKALINE PHOSPHATASE 59 U/L (46-116); ASPARTATE AMINOTRANSFERASE 19 U/L (15-37); BILIRUBIN,DIRECT 0.1 mg/dL (0.0-0.2); BILIRUBIN,TOTAL 0.2 mg/dL (0.2-1.0); TOTAL PROTEIN, SERUM 7.4 g/dL (6.4-8.2)
[2017-11-14 19:24] LABS: ACETAMINOPHEN < 2 ug/ml (10-30); SALICYLATE 1.3 mg/dL (2.8-20.0)
--- NOTE | 2017-11-14 19:35 | NUR ---
REPORT GIVEN TO ISABELLA MCKEON FOR HELDER.
[2017-11-14 19:39] LABS: BACTERIA,URINE 4+ /HPF (None Seen); RBC,URINE NONE SEEN /HPF (0-2); SQUAMOUS EPITHELIAL CELL,UR Few /HPF (None Seen)
--- NOTE | 2017-11-14 19:49 | NUR ---
CALLED MARY ELL[facility] BAKERY DECORATOR, ETA 1 HR.
--- NOTE | 2017-11-14 20:40 | NUR ---
1ST BAG OF ROCHEPHIN 1GM STARTED ON Pt
--- NOTE | 2017-11-14 20:49 | NUR ---
STARTED IV ACCESS ON RFA #22G
--- NOTE | 2017-11-14 21:01 | NUR ---
CALLED [employer] PHYSICIAN PEDIATRICIAN WAS PAGED.
--- NOTE | 2017-11-14 21:38 | NUR ---
CALLED [facility] FOR TRANSPORT ETA OF 30 MINS WAS GIVEN. TRIP#[id number]
--- NOTE | 2017-11-14 22:40 | NUR ---
AMBULANCE TRANSPORT ARRIVED FOR PICKUP. ALL ORDERED MEDS GIVEN. IV REMOVED. Pt SAFELY TRANSFERED TO AMBULANCE [facility]. [facility] AWARE OF Pt COMING BACK.
[2017-11-14 22:48] VITALS: BP 125/79
== END ==
LOC: ER 18:15
DX: N39.0 Urinary tract infection, site not specified (principal); N18.9 Chronic kidney disease, unspecified; D50.0 Iron deficiency anemia secondary to blood loss (chronic); I12.9 Hypertensive chronic kidney disease with stage 1 through stage 4 chronic kidney disease, or unspecified chronic kidney disease; E11.22 Type 2 diabetes mellitus with diabetic chronic kidney disease; K21.9 Gastro-esophageal reflux disease without esophagitis; E78.5 Hyperlipidemia, unspecified; M19.90 Unspecified osteoarthritis, unspecified site; Z86.73 Personal history of transient ischemic attack (TIA), and cerebral infarction without residual deficits; Z98.890 Other specified postprocedural states; Z88.8 Allergy status to other drugs, medicaments and biological substances; Z79.84 Long term (current) use of oral hypoglycemic drugs; Z79.899 Other long term (current) drug therapy
CPT/HCPCS: 36415; 80048-TC; 80076-TC; 80305; 81000-TC; 85025-TC; 87081-TC; 87086-TC; 87186-TC; A4606; G0480; J0696; J7060; Z7610

== ENCOUNTER 2018-08-18 14:30 | Emergency (ER) | payer MEDICARE, OTHER ==
[~2018-08-18] VITALS: Ht 165.1 cm; Wt 74.8 kg
[~2018-08-18 14:30] MED LIST changes: -CEFTRIAXONE 1GM BAG (ER ONLY) 100 ML IV ONE; -CEFTRIAXONE 2 G in IV D5W 50 ML IV ONE; -HYDR-552 PO; -MAG30ORA PO; +METF-440 PO; -METF500T6 PO; -MULT-24 PO; -VITA1CAP PO
--- NOTE | 2018-08-18 14:59 | NUR ---
iv access initiated and blood drawned and sent to lab.
[2018-08-18 15:16] LABS: BASOPHILS % (AUTO) 0.7 % (0.0-2.0); EOSINOPHILS % (AUTO) 2.6 % (0.0-6.0); HEMATOCRIT 31 % (33-45); HEMOGLOBIN 10.3 g/dL (11.5-14.8); LYMPHOCYTES # (AUTO) 2.2 /CMM (0.8-4.8); LYMPHOCYTES % (AUTO) 34.6 % (20.0-44.0); MEAN CORPUSCULAR HGB CONC 33 g/dl (31.0-36.0); MEAN CORPUSCULAR VOLUME 81 fL (82-100); MONOCYTES # (AUTO) 0.4 /CMM (0.1-1.30); MONOCYTES % (AUTO) 5.9 % (2.0-12.0); NEUTROPHILS # (AUTO) 3.6 /CMM (1.8-8.9); NEUTROPHILS % (AUTO) 56.2 % (43.0-81.0); PLATELET COUNT (AUTO) 277 /CMM (150-450); RED BLOOD CELL COUNT(AUTO) 3.81 MIL/uL (4.0-5.2); WHITE BLOOD COUNT (AUTO) 6.5 K/uL (4.3-11.0)
[2018-08-18 15:23] LABS: CALCIUM, SERUM 9.5 mg/dL (8.5-10.1); CARBON DIOXIDE 26 mmol/L (21-32); CHLORIDE 103 mmol/L (98-107); CREATININE 1.2 mg/dL (0.6-1.3); GLUCOSE 113 mg/dL (74-106); POTASSIUM 3.4 mmol/L (3.5-5.1); SODIUM SERUM 139 mmol/L (136-145); UREA NITROGEN, BLOOD 16 mg/dL (7-18)
[2018-08-18 15:30] LABS: ALANINE AMINOTRANSFERASE 28 U/L (12-78); ALBUMIN 3.7 g/dL (3.4-5.0); ALKALINE PHOSPHATASE 62 U/L (46-116); ASPARTATE AMINOTRANSFERASE 11 U/L (15-37); BILIRUBIN,DIRECT 0.1 mg/dL (0.0-0.2); BILIRUBIN,TOTAL 0.3 mg/dL (0.2-1.0); TOTAL PROTEIN, SERUM 7.5 g/dL (6.4-8.2)
[2018-08-18] MEDS ORDERED: IV NS 0.9% 500 ML BAG IV ONE (15:30)
--- NOTE | 2018-08-18 16:09 | NUR ---
CALLED [facility] FOR TRANSPORT ETA OF 1630 WAS GIVEN. TRIP#[id number]
--- NOTE | 2018-08-18 16:49 | NUR ---
CALLED [facility] FOR TRANSPORT ETA OF 1700 WAS GIVEN.
[2018-08-18 18:36] VITALS: BP 133/66
--- NOTE | 2018-08-18 18:37 | NUR ---
patient picked up by private ambulance. in no apparent distress noted. Called [facility] on hold for 10 mins unable to locate RN rn house supervisor. In[facility] EMT that [facility]. Patient is alert and oriented.
== END 2018-08-18 18:36 ==
LOC: ER 14:33
DX: R53.1 Weakness (principal); E11.9 Type 2 diabetes mellitus without complications; I10 Essential (primary) hypertension; K21.9 Gastro-esophageal reflux disease without esophagitis; E78.5 Hyperlipidemia, unspecified; M19.90 Unspecified osteoarthritis, unspecified site; Z88.8 Allergy status to other drugs, medicaments and biological substances; Z86.73 Personal history of transient ischemic attack (TIA), and cerebral infarction without residual deficits; Z79.84 Long term (current) use of oral hypoglycemic drugs; Z79.899 Other long term (current) drug therapy
CPT/HCPCS: 36415; 70450; 71045; 80048; 80076; 84484; 85025; 85730; 93005; 99284; J7040

== ENCOUNTER 2019-09-16 11:30 | Inpatient (IN) | payer MEDICARE, OTHER ==
[~2019-09-16] VITALS: Ht 170.2 cm; Wt 83.5 kg
[~2019-09-16 11:30] MED LIST changes: +BISA10SU11 RC; +NIFE-34 PO; -NIFE60TA69 PO
[2019-09-16] MEDS ORDERED: IV NS 0.9% 1,000 ML IV ONE (11:59)
--- NOTE | 2019-09-16 12:24 | NUR ---
PT GOING TO 205.1
[2019-09-16] MEDS ORDERED: ACETAMINOPHEN 650 MG/SUPP.RECT RC ONE ×2 (12:30→13:00)
[2019-09-16 12:37] LABS: BASOPHILS % (AUTO) 0.2 % (0.0-2.0); HEMATOCRIT 34 % (33-45); LYMPHOCYTES # (AUTO) 1.1 /CMM (0.8-4.8); LYMPHOCYTES % (AUTO) 10.5 % (20.0-44.0); MEAN CORPUSCULAR HGB CONC 33 g/dl (31.0-36.0); MEAN CORPUSCULAR VOLUME 80 fL (82-100); MONOCYTES # (AUTO) 0.3 /CMM (0.1-1.30); MONOCYTES % (AUTO) 2.6 % (2.0-12.0); NEUTROPHILS # (AUTO) 9.2 /CMM (1.8-8.9); NEUTROPHILS % (AUTO) 86.7 % (43.0-81.0); PLATELET COUNT (AUTO) 303 /CMM (150-450); RED BLOOD CELL COUNT(AUTO) 4.18 MIL/uL (4.0-5.2); WHITE BLOOD COUNT (AUTO) 10.7 K/uL (4.3-11.0)
[2019-09-16 12:49] LABS: BILIRUBIN,URINE SMALL (NEGATIVE); BLOOD, URINE Large Ery/uL (NEGATIVE); COLOR,URINE Yellow (YELLOW); KETONES,URINE Trace (NEGATIVE); LEUKOCYTE ESTERASE ,URINE Large (NEGATIVE); NITRITE, URINE Negative (NEGATIVE); PROTEIN,URINE 100 mg/dl (NEGATIVE); UGLUCOSE Negative (NEGATIVE); UROBILINOGEN,URINE 0.2 EU/dL (0.2)
[2019-09-16 12:52] LABS: APPEARANCE,URINE CLOUDY (CLEAR)
[2019-09-16 12:55] LABS: BACTERIA,URINE 1+ /HPF (None Seen); RBC,URINE 21-50 /HPF (0-2)
[2019-09-16 12:55] LABS: POTASSIUM 4.8 mmol/L (3.5-5.1)
[2019-09-16 12:56] LABS: BILIRUBIN,TOTAL 0.4 mg/dL (0.2-1.0); CALCIUM, SERUM 9.3 mg/dL (8.5-10.1); CREATININE 6.3 mg/dL (0.6-1.3)
[2019-09-16 12:57] LABS: ALBUMIN 3.6 g/dL (3.4-5.0); TOTAL PROTEIN, SERUM 8.5 g/dL (6.4-8.2)
[2019-09-16] MEDS ORDERED: DEXTROSE 50%-WATER 50 ML DISP.SYRIN ONE (12:57)
[2019-09-16] MEDS ORDERED: DEXTROSE 50%-WATER 50 ML DISP.SYRIN IVP ONE (13:00)
--- NOTE | 2019-09-16 13:02 | NUR ---
NOTED BS OF 28 GIVEN D50 IVP
[2019-09-16] MEDS ORDERED: ASPI-1152 PO (13:03)
[2019-09-16] MEDS ORDERED: MINO2.5T PO (13:03)
[2019-09-16] MEDS ORDERED: SEMA0.25 SQ (13:03)
[2019-09-16] MEDS ORDERED: CYAN-51 PO (13:03)
[2019-09-16] MEDS ORDERED: MELA3TAB41 PO (13:03)
[2019-09-16] MEDS ORDERED: SPIR50TA5 PO (13:03)
[2019-09-16] MEDS ORDERED: METO25TA3 PO (13:03)
[2019-09-16] MEDS ORDERED: FURO-145 PO (13:03)
[2019-09-16] MEDS ORDERED: CLON0.3P TD (13:03)
[2019-09-16] MEDS ORDERED: BENA40TA8 PO (13:03)
[2019-09-16] MEDS ORDERED: ATOR10TA PO (13:03)
[2019-09-16] MEDS ORDERED: PIOG15TA8 PO (13:03)
[2019-09-16] MEDS ORDERED: GLIP5TAB13 PO (13:03)
--- NOTE | 2019-09-16 13:04 | NUR ---
[facility] [phone] WILL BE PAGED.
[2019-09-16] MEDS ORDERED: IV D5/0.45 NACL 1,000 ML IV ONE (13:12)
--- NOTE | 2019-09-16 13:13 | NUR ---
NAREN FROM SNF. TO ER BED 5. LETHARGIC NON VERBAL. WITHDRAWS TO PAIN. BROUGHT IN LOW BS AT THE SNF. GLUCAGON GIVEN IM. PT REPROTED REFUSED HER BREAKFAST. REPORTED WITH EPISODES OF VOMTING. BS NOTED @ 28 ON FSBS. GIVEN D50 IVP X 1. PT AWAKEN WHILE BEING GIVEN. WAS AT BEDSIDE. IV LINE OBTAINED ON R AC 18G. BLOOD DRAWN. GIVEN TO SUPERVISOR THROWING DEPARTMENT. PT ON MONITOR.
--- NOTE | 2019-09-16 13:14 | NUR ---
PT O2 VIA NC @ 2LPM FOR O2 SAT NOTED @ 93%. SATTING @ 97% AFTER
[2019-09-16] MEDS ORDERED: LEVOFLOXACIN 750 MG /D5W 150ML 150 ML IV ONE (13:30)
[2019-09-16] MEDS ORDERED: PIPERACILLIN /TAZOBACTAM 3.375 G in IV D5W 50 ML IV ONE (13:30)
[2019-09-16 13:47] LABS: C-REACTIVE PROTEIN 5.2 mg/dL (0.0-0.9)
--- NOTE | 2019-09-16 14:03 | NUR ---
REPORT GIVEN TO MIKE WHITE FOR HELDER.
--- NOTE | 2019-09-16 14:24 | NUR ---
PT NOTED WITH BP 87/52. MADE AWARE. ORDERED TO GIVE ANOTHER 1L NS VIA IV X 1. NOTED AND CARRIED OUT.
[2019-09-16] MEDS ORDERED: IV NS 0.9% 500 ML BAG IV ONE (14:30)
--- NOTE | 2019-09-16 14:32 | NUR ---
BP NOTED @ 93/55. MD MADE AWARE. PT IS OK TO GO UP PER MD
--- NOTE | 2019-09-16 14:55 | NUR ---
PT TRANSPORTED TO UNIT ON [facility] W/ EMT AND RN AT BEDSIDE W/ ACLS PROTOCOL. NAD NOTED DURING TRANSPORT.
[2019-09-16 15:00] VITALS: BP 95/47
--- NOTE | 2019-09-16 15:00 | NUR ---
RECEIVED PT FROM ER AND CHECKED DR HERMAN'S ORDERS IN THE CHART WITH ORDER TO TRANSFER PT TO [facility]/TELE.NOTIFIED RN GEOGRAPHY TEACHER BARON AND [facility] CHARGE NURSE RN, SOON.AWAITING FOR BED AVAILABILITY.WITH STABLE V/S.
[2019-09-16 16:00] VITALS: BP 135/81
[2019-09-16] MEDS ORDERED: ONDANSETRON HCL/PF 4 MG/2 ML VIAL IVP PRN (16:00)
[2019-09-16] MEDS ORDERED: IV NS 0.9% 1,000 ML IV PRN (16:00)
--- NOTE | 2019-09-16 16:00 | NUR ---
TRANSFERRED PT TO [facility] ROOM 111-1 AND FULL REPORT GIVEN TO MIKE LINCOLN WITH STABLE V/S.
[2019-09-16] MEDS: HEPARIN SODIUM, PORCINE 5000 UNITS/1 ML VIAL SQ SCH (16:21)
--- NOTE | 2019-09-16 16:30 | NUR ---
RN OPENING NOTE Received patient in bed on NC 3L sleeping calm and relaxed. Response to loud voice. Has RAC 18g. Dr. Lancaster ordered loco catheter to measure output. No signs of pain or discomfort. No signs of distress. Bed locked and on lowest position. Siderails up x2. Will cont to monitor.
[2019-09-16] MEDS ORDERED: ACETAMINOPHEN 325 MG TABLET PO PRN (17:30)
[2019-09-16] MEDS ORDERED: BISACODYL SUPP (10 MG) 10 MG/SUPP.RECT SUPP.RECT RC PRN (17:30)
[2019-09-16] MEDS: CEFTRIAXONE 1 G in IV D5W 50 ML IV SCH (17:54)
[2019-09-16] MEDS: BLOOD SUGAR DIAGNOSTIC 1 EACH STRIP IN SCH ×2 (18:15→22:00)
[2019-09-16] MEDS: DEXTROSE 50%-WATER 50 ML DISP.SYRIN IV PRN ×3 (18:15→22:00)
--- NOTE | 2019-09-16 18:15 | NUR ---
[facility] RN NOTE BS is 34. Gave d50 via IV. Will cont to monitor.
[2019-09-16] MEDS: ZITHROMAX 500 MG/250 ML D5W IV SCH ×2 (18:45)
--- NOTE | 2019-09-16 18:45 | NUR ---
[facility] RN NOTE BS is 120. Effective intervention.
[2019-09-16 18:53] LABS: CREATININE, URINE 336.9 MG/DL (30.0-125.0); URINE TOTAL PROTEIN 190.6 mg/dL (0-11.9)
--- NOTE | 2019-09-16 19:43 | NUR ---
[facility] RN CLOSING NOTE Patient in bed asleep. Aroused to loud voice. On NC 3L tolerating well. IVF of NS @ 125ml/hr. On FC draining clear yellow urine. Vital signs within normal limits. All due meds given. Antibiotic administered as ordered. No adverse reaction to medications. Will cont to monitor and endorsed to retail shift manager nurse for vani.
[2019-09-16 20:00] VITALS: BP 98/61
[2019-09-16] MEDS ORDERED: ATORVASTATIN 10 MG TABLET PO SCH (21:00)
[2019-09-16] MEDS ORDERED: Medication Not On Formulary EA (Melatonin 6 MG) PO SCH (22:00)
[2019-09-16] MEDS: DOCUSATE SODIUM 100 MG CAPSULE PO SCH (22:38)
[2019-09-16] MEDS: QUETIAPINE FUMARATE 25 MG TABLET PO SCH (22:38)
[2019-09-16] MEDS: SENNOSIDES 8.6 MG TABLET PO SCH (22:40)
[2019-09-16] MEDS: ASPIRIN EC 81 MG TABLET.DR PO SCH (22:41)
[2019-09-16] MEDS: MINOXIDIL (2.5MG) 2.5 MG TABLET PO SCH (22:41)
[2019-09-16] MEDS: INSULIN REGULAR, HUMAN 100 UNIT/ML 3 ML VIAL SQ PRN (23:53)
[2019-09-17] VITALS: BP 111/47
[2019-09-17] MEDS ORDERED: IV D5W 1,000 ML IV ONE (01:30)
[2019-09-17] MEDS: DEXTROSE 50%-WATER 50 ML DISP.SYRIN IV PRN ×2 (02:42→06:48)
[2019-09-17 04:00] VITALS: BP 113/54
[2019-09-17 06:56] LABS: BASOPHILS % (AUTO) 0.2 % (0.0-2.0); HEMATOCRIT 35 % (33-45); HEMOGLOBIN 11.4 g/dL (11.5-14.8); LYMPHOCYTES # (AUTO) 0.7 /CMM (0.8-4.8); LYMPHOCYTES % (AUTO) 8.9 % (20.0-44.0); MEAN CORPUSCULAR HGB CONC 33 g/dl (31.0-36.0); MEAN CORPUSCULAR VOLUME 81 fL (82-100); MONOCYTES # (AUTO) 0.2 /CMM (0.1-1.30); MONOCYTES % (AUTO) 2.7 % (2.0-12.0); NEUTROPHILS # (AUTO) 6.7 /CMM (1.8-8.9); NEUTROPHILS % (AUTO) 88.2 % (43.0-81.0); PLATELET COUNT (AUTO) 286 /CMM (150-450); RED BLOOD CELL COUNT(AUTO) 4.31 MIL/uL (4.0-5.2); WHITE BLOOD COUNT (AUTO) 7.5 K/uL (4.3-11.0)
[2019-09-17] MEDS ORDERED: IV 10% DEXTROSE 1,000 ML IV PRN (07:00)
[2019-09-17 07:40] LABS: CALCIUM, SERUM 8.7 mg/dL (8.5-10.1); MAGNESIUM 1.7 mg/dL (1.8-2.4); PHOSPHORUS 2.9 mg/dL (2.5-4.9)
[2019-09-17] MEDS: BLOOD SUGAR DIAGNOSTIC 1 EACH STRIP IN SCH ×4 (07:58→22:30)
[2019-09-17 08:00] VITALS: BP_SYST 106; BP_SYST 130; BP_DIAS 52; BP_DIAS 83
--- NOTE | 2019-09-17 08:00 | NUR ---
MATERIALS TECH OPENING NOTES OPENING RN NOTES RECEIVED PATIENT SLEEPING AND RESTING IN BED. A&O X2. VS STABLE WITH NO ACUTE DISTRESS. MINIMAL LABORED BREATHING ON 2L NS WITH NO RESPIRATORY DISTRESS. TELEMONITOR IN PLACE, PATIENT SR TACHY HR 120. LAC 22G. D10W @ 50ML/HR. . SAFETY MEASURES IN PLACE, BED LOCKED IN THE LOWEST POSITION. SIDE RAILS UP X 2. CALL LIGHT WITHIN REACH. WILL CONTINUE TO MONITOR.
--- NOTE | 2019-09-17 08:40 | NUR ---
BS ASSESSMENT PATIENT BLOOD SUGAR WITHIN THE NORMAL LIMITS, WILL NOT ADMINISTER INSULIN AT THIS TIME, PER SLIDING SCALE.
[2019-09-17] MEDS ORDERED: GLUCAGON,HUMAN RECOMBINANT 1 MG/VIAL VIAL IV ONE (09:00)
--- NOTE | 2019-09-17 09:00 | NUR ---
RESPIRATORY REASSESSMENT AFTER THE INITIAL ASSESSMENT RR 19; O2 SATURATION AT 96; HR 130 ( PATIENT HAS CONTINUALLY PRESENTED ELEVATED HR). LUNG SOUNDS ARE DIMINISHED
[2019-09-17] MEDS: DOCUSATE SODIUM 100 MG CAPSULE PO SCH ×2 (09:01→22:12)
[2019-09-17] MEDS: MINOXIDIL (2.5MG) 2.5 MG TABLET PO SCH ×2 (09:02→22:12)
[2019-09-17] MEDS: VENLAFAXINE XR 75 MG CAP.SR.24H PO SCH (09:02)
[2019-09-17] MEDS: METOPROLOL SUCCINATE 25 MG TAB.SR.24H PO SCH (09:03)
[2019-09-17] MEDS: HEPARIN SODIUM, PORCINE 5000 UNITS/1 ML VIAL SQ SCH ×2 (09:09→22:29)
[2019-09-17] MEDS: ACETAMINOPHEN 325 MG TABLET PO PRN (11:26)
[2019-09-17 12:00] VITALS: BP 100/62
[2019-09-17 16:00] VITALS: BP 110/72
[2019-09-17] MEDS: CEFTRIAXONE 1 G in IV D5W 50 ML IV SCH (16:02)
[2019-09-17] MEDS: ZITHROMAX 500 MG/250 ML D5W IV SCH ×2 (17:15)
[2019-09-17] MEDS: INSULIN REGULAR, HUMAN 100 UNIT/ML 3 ML VIAL SQ PRN ×2 (17:33→22:31)
--- NOTE | 2019-09-17 18:49 | NUR ---
TEMPERATURE ASSESSMENT PATIENT PRESENTS 101.5 TEMPERATURE, PRN ACETAMINOPHEN WILL BE GIVEN
--- NOTE | 2019-09-17 18:52 | NUR ---
RN CLOSING NOTES BLENDING TANK TENDER OPENING NOTES OPENING RN NOTES PATIENT SLEEPING AND RESTING IN BED. A&O X2. VS STABLE WITH NO ACUTE DISTRESS. UNLABORED BREATHING ON 2L NS WITH NO RESPIRATORY DISTRESS. TELEMONITOR IN PLACE, PATIENT SR TACHY HR 120. LAC 22G. D10W @ 50ML/HR. . SAFETY MEASURES IN PLACE, BED LOCKED IN THE LOWEST POSITION. SIDE RAILS UP X 2. CALL LIGHT WITHIN REACH. WILL ENDORE THE INCOMING NURSE TO CONTINUE PROVIDING PATIENT CARE.
[2019-09-17 20:00] VITALS: BP 92/67
[2019-09-17] MEDS: ASPIRIN EC 81 MG TABLET.DR PO SCH (22:11)
[2019-09-17] MEDS: SENNOSIDES 8.6 MG TABLET PO SCH (22:12)
[2019-09-17] MEDS: QUETIAPINE FUMARATE 25 MG TABLET PO SCH (22:12)
--- NOTE | 2019-09-17 23:39 | NUR ---
RN NOTES ALERT AND VERBALLY RESPONSIVE. NO SIGNS OF DISTRESS. CONTINUE ON IVF ON RH G22. REPOSITIONED FOR COMFORT. 2230 BS 154; NO COVERAGE GIVEN DUE TO PREVIOUS LOW BS AND ON D10 IVF. WILL CONTINUE TO MONITOR. [id number] ENDORSED TO CINDY FOR CONTINUITY OF CARE
[2019-09-18] VITALS: BP 120/58
--- NOTE | 2019-09-18 | NUR ---
RN NOTE RECEIVED PATIENT AT THIS TIME, RESTING WITH HOB ELEVATED. A&O X3, BREATHING EVEN AND NON LABORED. ON O2 2 L VIA NC. IN NO APPARENT DISTRESS NOTED AT THIS TIME. IV SITES ON LEFT HAND #22, CLEAN, DRY, AND PATENT. WILL CONTINUE TO MONITOR.
[2019-09-18 04:00] VITALS: BP 100/59
[2019-09-18 06:28] LABS: BASOPHILS % (AUTO) 0.2 % (0.0-2.0); EOSINOPHILS % (AUTO) 0.4 % (0.0-6.0); HEMATOCRIT 30 % (33-45); HEMOGLOBIN 9.9 g/dL (11.5-14.8); LYMPHOCYTES % (AUTO) 14.3 % (20.0-44.0); MEAN CORPUSCULAR HGB CONC 33 g/dl (31.0-36.0); MEAN CORPUSCULAR VOLUME 81 fL (82-100); MONOCYTES # (AUTO) 0.2 /CMM (0.1-1.30); MONOCYTES % (AUTO) 3.6 % (2.0-12.0); NEUTROPHILS # (AUTO) 5.5 /CMM (1.8-8.9); NEUTROPHILS % (AUTO) 81.5 % (43.0-81.0); PLATELET COUNT (AUTO) 285 /CMM (150-450); RED BLOOD CELL COUNT(AUTO) 3.69 MIL/uL (4.0-5.2); WHITE BLOOD COUNT (AUTO) 6.7 K/uL (4.3-11.0)
[2019-09-18 06:53] LABS: CALCIUM, SERUM 8.9 mg/dL (8.5-10.1); CREATININE 4.4 mg/dL (0.6-1.3); MAGNESIUM 1.5 mg/dL (1.8-2.4); POTASSIUM 4.8 mmol/L (3.5-5.1)
--- NOTE | 2019-09-18 06:53 | NUR ---
RN NOTE PATIENT REMAINED STABLE THROUGHOUT THE NIGHT. NO SIGNIFICANT CHANGES NOTED. O2 SAT KEPT ABOVE 90% VIA 2 L O2 ON NC. PATIENT KEPT CLEAN, DRY, AND COMFORTABLE. WILL ENDORSE AM SHIFT RN FOR CONTINUATION OF CARE.
[2019-09-18 07:07] LABS: PTH, INTACT 70 pg/mL (15-65)
[2019-09-18] MEDS: BLOOD SUGAR DIAGNOSTIC 1 EACH STRIP IN SCH ×4 (07:40→22:36)
--- NOTE | 2019-09-18 07:41 | NUR ---
RN OPENING NOTES RECEIVED PATIENT RESTING IN BED COMFORTABLY, NO S/SX OF DISTRESS AT THIS TIME. PT IS AOX3, VERBAL, AND ON BEDREST. SHE IS ON 3L OF OXYGEN VIA NC, TOLERATING WELL, DENIES ANY SOB OR RESP DISTRESS. TELE MONITOR SHOWING SR. DOLAN CATH IS PATENT AND INTACT. SACRAL WOUND PRESENT, WILL ADDRESS PER WOUND CARE PLAN. IV SITE ON L HAND 22 G IS PATENT AND INTACT, RUNNING D10W. SAFETY MEASURES HAVE BEEN IMPLEMENTED, CALL LIGHT IS WITHIN REACH, BED IS IN LOWEST AND LOCKED POSITION, SIDE RAILS UP X2, WILL CONTINUE TO MONITOR FOR ANY CHANGES
[2019-09-18 08:00] VITALS: BP 133/68
[2019-09-18] MEDS: HEPARIN SODIUM, PORCINE 5000 UNITS/1 ML VIAL SQ SCH ×2 (09:24→21:40)
[2019-09-18] MEDS: INSULIN REGULAR, HUMAN 100 UNIT/ML 3 ML VIAL SQ PRN ×3 (09:26→22:51)
[2019-09-18] MEDS: DOCUSATE SODIUM 100 MG CAPSULE PO SCH ×2 (09:26→21:37)
[2019-09-18] MEDS: VENLAFAXINE XR 75 MG CAP.SR.24H PO SCH (09:26)
[2019-09-18] MEDS: METOPROLOL SUCCINATE 25 MG TAB.SR.24H PO SCH (09:28)
[2019-09-18] MEDS: MINOXIDIL (2.5MG) 2.5 MG TABLET PO SCH ×2 (09:30→21:37)
[2019-09-18 12:00] VITALS: BP 130/72
[2019-09-18] MEDS: IV D5/ 0.9% NACL 1,000 ML IV PRN (13:41)
[2019-09-18] MEDS: MEROPENEM 500 MG in IV NS 0.9% 50 ML IV SCH ×2 (14:37→21:34)
--- NOTE | 2019-09-18 14:37 | NUR ---
RN NOTES 1300 DOSE OF IV MEROPENEM GIVEN LATE DUE TO PHARMACY DELAY
[2019-09-18 16:00] VITALS: BP 124/78
[2019-09-18] MEDS: AZITHROMYCIN 250 MG TABLET PO SCH ×2 (16:51→17:00)
--- NOTE | 2019-09-18 17:09 | NUR ---
RN NOTES PT REFUSED 1700 DOSE OF AZITHROMAX, EDUCATED THE PATIENT ON WHY SHE NEEDS SPECIFIC MEDICATION, OFFERED ALTERNATIVE ADMIN METHODS LIKE JELLO, APPLE SAUCE AND PUDDING TO NO SUCCESS.
--- NOTE | 2019-09-18 19:00 | NUR ---
RN OPENING NOTES RECEIVED PATIENT RESTING IN BED, A/OX3, NOTED SLOW TO RESPOND WITH QUESTIONS. DENIES ANY PAIN. ON TELE MONITOR SINUS TACHY WITH HR 110'S. ON 2L OXYGEN VIA NC, TOLERATING WELL, NO SOB OR RESPIRATORY DISTRESS NOTED. IV SITE LEFT HAND 20G FLUSHING AND PATENT, D5NS RUNNING AT 100ML/HR, TOLERATING WELL. DOLAN CATH INTACT AND DRAINING WELL. SAFETY MEASURES IN PLACE; CALL LIGHT WITHIN REACH, BED IS IN LOWEST AND LOCKED POSITION, SIDE RAILS UP X2, BED ALARM ON. WILL CONT TO MONITOR CLOSELY.
--- NOTE | 2019-09-18 19:09 | NUR ---
RN CLOSING NOTES PATIENT IS RESTING IN BED COMFORTABLY, NO S/SX OF DISTRESS. PT IS ON 2L OXYGEN VIA NC, TOLERATING WELL. PT NEEDS HAVE BEEN MET, VITAL SIGNS ARE STABLE, NO ACUTE CHANGES OCCURRED THROUGHOUT THE SHIFT. SAFETY MEASURES HAVE BEEN IMPLEMENTED, CALL LIGHT IS WITHIN REACH, BED IS IN LOWEST AND LOCKED POSITION, SIDE RAILS UP X2, PT HAS BEEN ENDORSED TO NIGHTSHIFT RN FOR HELDER.
[2019-09-18 20:00] VITALS: BP 121/94
[2019-09-18] MEDS ORDERED: MEROPENEM 1 G in IV NS 0.9% 100 ML IV SCH (21:00)
[2019-09-18] MEDS: SENNOSIDES 8.6 MG TABLET PO SCH (21:37)
[2019-09-18] MEDS: ASPIRIN EC 81 MG TABLET.DR PO SCH (21:37)
[2019-09-18] MEDS: QUETIAPINE FUMARATE 25 MG TABLET PO SCH (21:37)
[2019-09-18] MEDS: ACETAMINOPHEN 325 MG TABLET PO PRN (21:37)
--- NOTE | 2019-09-18 22:52 | NUR ---
RN NOTES PATIENT BS 142, DID NOT ADMINISTER INSULIN COVERAGE DUE TO PATIENT DID NOT EAT THE WHOLE DAY PER AM RN REPORT AND HX OF LOW BLOOD SUGAR. PATIENT ON D5NS. WILL CONT TO MONITOR.
--- NOTE | 2019-09-18 23:00 | NUR ---
RN NOTES PATIENT SWABBED FOR AVILA VIRUS BY RN, SENT TO LAB.
[2019-09-19] VITALS (7 sets, daily range): BP systolic 99–157; BP diastolic 66–82
[2019-09-19] MEDS: IV D5/ 0.9% NACL 1,000 ML IV PRN (01:24)
--- NOTE | 2019-09-19 04:09 | NUR ---
RN NOTES PATIENT'S IV SITE LEAKING, REMOVED, HOWEVER PATIENT REFUSED IV INSERTION DESPITE DISCUSSION OF RISKS AND BENEFITS INCLUDING NEED FOR D5NS IVF AND ANTIBIOTICS, PATIENT STATED "THAT'S OKAY, I DON'T WANT IT ANYWAYS" CHARGE NURSE MADE AWARE. WILL CONT TO MONITOR.
--- NOTE | 2019-09-19 07:08 | NUR ---
RN CLOSING NOTES PATIENT SLEEPING IN BED, BUT EASY TO AROUSE, A/OX3, DENIES ANY PAIN. ON TELE MONITOR SR WITH HR 90'S. ON 2L OXYGEN VIA NC, TOLERATING WELL, NO SOB OR RESPIRATORY DISTRESS NOTED. DOLAN CATH INTACT AND DRAINING WELL. SAFETY MEASURES IN PLACE; CALL LIGHT WITHIN REACH, BED IS IN LOWEST AND LOCKED POSITION, SIDE RAILS UP X2, BED ALARM ON. ISOLATION PRECAUTION MAINTAINED. ENDORSED TO AM RN FOR HELDER.
[2019-09-19 07:17] LABS: BASOPHILS % (AUTO) 0.3 % (0.0-2.0); EOSINOPHILS % (AUTO) 0.8 % (0.0-6.0); HEMATOCRIT 30 % (33-45); HEMOGLOBIN 9.7 g/dL (11.5-14.8); LYMPHOCYTES # (AUTO) 1.4 /CMM (0.8-4.8); LYMPHOCYTES % (AUTO) 18.3 % (20.0-44.0); MEAN CORPUSCULAR HGB CONC 32 g/dl (31.0-36.0); MEAN CORPUSCULAR VOLUME 83 fL (82-100); MONOCYTES # (AUTO) 0.4 /CMM (0.1-1.30); MONOCYTES % (AUTO) 5.7 % (2.0-12.0); NEUTROPHILS # (AUTO) 5.7 /CMM (1.8-8.9); NEUTROPHILS % (AUTO) 74.9 % (43.0-81.0); PLATELET COUNT (AUTO) 309 /CMM (150-450); RED BLOOD CELL COUNT(AUTO) 3.59 MIL/uL (4.0-5.2); WHITE BLOOD COUNT (AUTO) 7.6 K/uL (4.3-11.0)
[2019-09-19 07:38] LABS: CALCIUM, SERUM 9.4 mg/dL (8.5-10.1); CREATININE 2.9 mg/dL (0.6-1.3); MAGNESIUM 1.6 mg/dL (1.8-2.4); POTASSIUM 5.1 mmol/L (3.5-5.1)
[2019-09-19] MEDS: BLOOD SUGAR DIAGNOSTIC 1 EACH STRIP IN SCH ×4 (07:42→21:31)
[2019-09-19] MEDS: VENLAFAXINE XR 75 MG CAP.SR.24H PO SCH ×2 (09:00→09:35)
[2019-09-19] MEDS: METOPROLOL SUCCINATE 25 MG TAB.SR.24H PO SCH ×2 (09:00→09:36)
[2019-09-19] MEDS: MINOXIDIL (2.5MG) 2.5 MG TABLET PO SCH ×2 (09:00→21:29)
[2019-09-19] MEDS: MEROPENEM 500 MG in IV NS 0.9% 50 ML IV SCH ×2 (09:00→21:32)
[2019-09-19] MEDS: HEPARIN SODIUM, PORCINE 5000 UNITS/1 ML VIAL SQ SCH ×3 (09:00→21:31)
[2019-09-19] MEDS: DOCUSATE SODIUM 100 MG CAPSULE PO SCH ×3 (09:00→21:29)
--- NOTE | 2019-09-19 09:57 | NUR ---
RN NOTES PT HAS REFUSED ALL AM MEDS. PT STATES SHE HAS NO APPETITE. PROVIDED HER WITH MULTIPLE OPTIONS LIKE APPLE SAUCE, PUDDING, JELLO, AND REFUSED TO ALL. DR. HERMAN MADE AWARE. WILL CONTINUE TO MONITOR FOR ANY CHANGES.
[2019-09-19] MEDS: Magnesium 1GM/D5W 100ML PREMIX 1 G in PREMIX 1 EA IV SCH ×2 (12:00→13:00)
[2019-09-19] MEDS: CITRIC ACID/SODIUM CITRATE (BICITRA)15 ML UDC PO SCH ×3 (13:36→21:29)
[2019-09-19] MEDS: Magnesium 1GM/D5W 100ML PREMIX 100 ML IV SCH ×2 (15:12→16:20)
[2019-09-19] MEDS: AZITHROMYCIN 250 MG TABLET PO SCH (16:45)
[2019-09-19] MEDS: INSULIN REGULAR, HUMAN 100 UNIT/ML 3 ML VIAL SQ PRN (17:41)
--- NOTE | 2019-09-19 19:10 | NUR ---
RN NOTES PATIENT IS RESTING IN BED COMFORTABLY AT THIS TIME, NO S/SX OF DISTRESS. PT IS ON 2L OF OXYGEN VIA NC, TOLERATING WELL. NO ACUTE CHANGES OCCURRED THROUGHOUT THE SHIFT, VITAL SIGNS ARE STABLE, PT NEEDS HAVE BEEN MET. SAFETY MEASURES HAVE BEEN IMPLEMENTED, CALL LIGHT IS WITHIN REACH, BED IS IN LOWEST AND LOCKED POSITION, SIDE RAILS UP X2, PT HAS BEEN ENDORSED TO NIGHTSHIFT RN FOR HELDER.
[2019-09-19] MEDS: SENNOSIDES 8.6 MG TABLET PO SCH (21:29)
[2019-09-19] MEDS: QUETIAPINE FUMARATE 25 MG TABLET PO SCH (21:29)
[2019-09-19] MEDS: ASPIRIN EC 81 MG TABLET.DR PO SCH (21:29)
[2019-09-20] VITALS: BP_SYST 118; BP_SYST 123; BP_DIAS 61; BP_DIAS 91
[2019-09-20] MEDS: IV D5/ 0.9% NACL 1,000 ML IV PRN ×2 (03:06→15:08)
[2019-09-20 04:00] VITALS: BP 87/69
[2019-09-20 06:22] LABS: CALCIUM, SERUM 9.3 mg/dL (8.5-10.1); MAGNESIUM 2.1 mg/dL (1.8-2.4); POTASSIUM 4.4 mmol/L (3.5-5.1)
[2019-09-20 06:26] LABS: BASOPHILS % (AUTO) 0.2 % (0.0-2.0); EOSINOPHILS % (AUTO) 1.3 % (0.0-6.0); HEMATOCRIT 29 % (33-45); HEMOGLOBIN 9.9 g/dL (11.5-14.8); LYMPHOCYTES # (AUTO) 1.2 /CMM (0.8-4.8); LYMPHOCYTES % (AUTO) 18.5 % (20.0-44.0); MEAN CORPUSCULAR HGB CONC 34 g/dl (31.0-36.0); MEAN CORPUSCULAR VOLUME 81 fL (82-100); MONOCYTES # (AUTO) 0.3 /CMM (0.1-1.30); MONOCYTES % (AUTO) 5.1 % (2.0-12.0); NEUTROPHILS # (AUTO) 4.8 /CMM (1.8-8.9); NEUTROPHILS % (AUTO) 74.9 % (43.0-81.0); PLATELET COUNT (AUTO) 370 /CMM (150-450); RED BLOOD CELL COUNT(AUTO) 3.56 MIL/uL (4.0-5.2); WHITE BLOOD COUNT (AUTO) 6.4 K/uL (4.3-11.0)
[2019-09-20 08:00] VITALS: BP 104/73
--- NOTE | 2019-09-20 08:00 | NUR ---
RN OPENING NOTES RECEIVED PATIENT FROM PM NURSE, RESTING COMFORTABLY IN BED. PATIENT IS A/O X2, NO ACUTE DISTRESS NOTED. ON 3L O2 VIA NASAL CANULA, TOLERATING WELL, SATURATING WELL, NO SIGNS AND SYMPTOMS OF RESPIRATORY DISTRESS NOTED. ON TELE MONITOR WITH ST NOTED, HR IN 100S. MD IS AWARE. DOLAN IN PLACE, INTACT AND DRAINING URINE. RAC #22G INTACT, PATENT, AND FLUSHED WELL. NO S.S OF INFILTRATION NOTED. IVF D5NS RUNNING ORDERED. PATIENT SAFETY IS BEING MAINTAINED, CALL LIGHT WITHIN REACH, WILL CONTINUE TO MONITOR CLOSELY.
[2019-09-20] MEDS: MEROPENEM 500 MG in IV NS 0.9% 50 ML IV SCH ×2 (08:04→21:42)
[2019-09-20] MEDS: METOPROLOL SUCCINATE 25 MG TAB.SR.24H PO SCH (08:07)
[2019-09-20] MEDS: MINOXIDIL (2.5MG) 2.5 MG TABLET PO SCH ×2 (08:08→21:42)
[2019-09-20] MEDS: DOCUSATE SODIUM 100 MG CAPSULE PO SCH ×3 (08:08→21:40)
[2019-09-20] MEDS: VENLAFAXINE XR 75 MG CAP.SR.24H PO SCH (08:08)
[2019-09-20] MEDS: HEPARIN SODIUM, PORCINE 5000 UNITS/1 ML VIAL SQ SCH ×2 (08:11→21:42)
[2019-09-20] MEDS: BLOOD SUGAR DIAGNOSTIC 1 EACH STRIP IN SCH ×4 (08:12→22:17)
[2019-09-20] MEDS: CITRIC ACID/SODIUM CITRATE (BICITRA)15 ML UDC PO SCH ×5 (09:00→21:35)
[2019-09-20] MEDS: INSULIN REGULAR, HUMAN 100 UNIT/ML 3 ML VIAL SQ PRN ×4 (10:43→22:17)
[2019-09-20 11:07] LABS: *SPE A/G RATIO 0.8 (0.7-1.7); *SPE ALBUMIN 3.2 g/dL (2.9-4.4); *SPE ALPHA-1-GLOBULIN 0.4 g/dL (0.0-0.4); *SPE ALPHA-2-GLOBULIN 1.2 g/dL (0.4-1.0); *SPE BETA GLOBULIN 1.2 g/dL (0.7-1.3); *SPE M-SPIKE Not Observed g/dL (Not Observed); *SPEGAMMA GLOBULIN 1.3 g/dL (0.4-1.8)
[2019-09-20 12:00] VITALS: BP 106/74
--- NOTE | 2019-09-20 12:00 | NUR ---
MIKE NOTES CLARIFIED O2 ORDERS WITH DR HERMAN
[2019-09-20] MEDS ORDERED: TRANEXAMIC ACID 1,000 MG in SODIUM CHLORIDE IRRIG SOLUTION 90 ML IR ONE (13:30)
[2019-09-20] MEDS ORDERED: TRANEXAMIC ACID 1,000 MG/10 ML VIAL IV ONE (13:30)
[2019-09-20 16:00] VITALS: BP 99/72
[2019-09-20] MEDS: AZITHROMYCIN 250 MG TABLET PO SCH (17:06)
--- NOTE | 2019-09-20 18:40 | NUR ---
RN NOTES WILL CONTINUE TAKING CARE OF THE PATIENT THROUGH THE NIGHT. NO ACUTE CHANGES TO PATIENT CONDITION DURING MY SHIFT, PATIENT SAFETY IS BEING MAINTAINED, CALL LIGHT WITHIN REACH, WILL CONTINUE TO MONITOR CLOSELY.
[2019-09-20 20:00] VITALS: BP 116/80
[2019-09-20] MEDS: ASPIRIN EC 81 MG TABLET.DR PO SCH ×2 (21:00→21:40)
[2019-09-20] MEDS: SENNOSIDES 8.6 MG TABLET PO SCH ×2 (21:00→21:35)
[2019-09-20] MEDS: QUETIAPINE FUMARATE 25 MG TABLET PO SCH (21:40)
--- NOTE | 2019-09-20 22:19 | NUR ---
RN NOTE PATIENT HAS REFUSED THE NON ADMINISTERED MEDS. EXPLAINED THE BENEFITS OF THE MEDICATION AND WHY IT IS NEEDED. PATIENT CONTINUES TO DECLINE AND SPIT OUT THE ASPIRIN. SAFETY MAINTAINED, CALL LIGHT WITHIN REACH, WILL CONTINUE TO MONITOR.
--- NOTE | 2019-09-20 23:26 | NUR ---
RN NOTE PATIENT HAS BEEN TRANSFERRED TO ROOM 112-1 PER NURSING SUPERVISORS REQUEST. ANOTHER COVID TEST WAS PERFORMED AND SENT TO THE LAB PER MD ORDER. PATIENT SAFETY MAINTAINED, CALL LIGHT WITHIN REACH, WILL CONTINUE TO MONITOR.
[2019-09-21] VITALS (8 sets, daily range): BP systolic 111–169; BP diastolic 36–106
[2019-09-21] MEDS: IV D5/ 0.9% NACL 1,000 ML IV PRN ×3 (01:15→23:01)
--- NOTE | 2019-09-21 06:27 | NUR ---
RN CLOSING NOTES PATIENT REMAINED IN STABLE CONDITION THROUGHOUT MY SHIFT. NO ACUTE CHANGES TO PATIENT CONDITION HAS BEEN NOTED. NO RESPIRATORY DISTRESS AT THIS MOMENT. ALL PATIENT NEEDS ATTENDED TO, SCHEDULED MEDS GIVEN ON TIME. PATIENT SAFETY WAS MAINTAINED, CALL LIGHT WITHIN REACH, WILL ENDORSE TO AM NURSE FOR CONTINUITY OF CARE.
--- NOTE | 2019-09-21 08:00 | NUR ---
RN NOTES RECEIVED PATIENT IN THE BED R/O ISOLATION COVID- 19, PATIENT A/O X2/3 WITH CONFUSION, ON O2-2LNC 95% NO ACUTE RESPIRATORY DISTRESS, BS-139 MG/DL COVERAGE NOT GIVEN REFUSED BREAKFAST, REFUSED SCHEDULED MEDICATION, V/S TAKEN BP 131/63, P-86. PATIENT HAS LEFT SIDE WEAKNESS, REFUSED TO BE TURNED, YELLING IF TRYING TO TOUCH. ELEVATED HOB, ALSO BLE USING PILLOWS, CALL LIGHT WITHIN TO REACH. CONTINUED MONITORING.
[2019-09-21] MEDS: CITRIC ACID/SODIUM CITRATE (BICITRA)15 ML UDC PO SCH ×5 (08:27→20:02)
[2019-09-21] MEDS: HEPARIN SODIUM, PORCINE 5000 UNITS/1 ML VIAL SQ SCH ×2 (08:28→20:45)
[2019-09-21] MEDS: MINOXIDIL (2.5MG) 2.5 MG TABLET PO SCH ×3 (08:30→20:02)
[2019-09-21] MEDS: METOPROLOL SUCCINATE 25 MG TAB.SR.24H PO SCH ×2 (08:30→09:00)
[2019-09-21] MEDS: VENLAFAXINE XR 75 MG CAP.SR.24H PO SCH (08:31)
[2019-09-21] MEDS: DOCUSATE SODIUM 100 MG CAPSULE PO SCH ×3 (08:31→20:02)
[2019-09-21] MEDS: BLOOD SUGAR DIAGNOSTIC 1 EACH STRIP IN SCH ×4 (08:33→21:21)
--- NOTE | 2019-09-21 08:49 | NUR ---
WOUND CARE CONSULT: REVIEWED CHART, NURSING DOCUMENTATION AND PHOTOS WHICH SHOW INCONTINENCE ASSOCIATED SKIN DAMAGE OVER PREVIOUS SACRAL SCARRING, PRESENT ON ADMISSION. RECOMMENDATIONS MADE FOR SKIN PROTECTION. DISCUSSED WITH NURSING STAFF. PT ON YELITZA ISOFLEX LOW AIRLOSS BED. MD IN AGREEMENT WITH PLAN OF CARE.
[2019-09-21] MEDS ORDERED: Z GUARD REMEDY 2 OZ OINT TP PRN (09:00)
[2019-09-21] MEDS: Z GUARD REMEDY 2 OZ OINT TP SCH (09:12)
--- NOTE | 2019-09-21 09:25 | NUR ---
RN NOTES DOLAN CATHETER DRAINING LIGHT YELLOW OUTPUT, RIGHT HAND IV ACCESS INTACT, INFUSING D5 NS AT 100 ML/HR INTACT. PATIENT ISOFLEX BED, SEEN WOUND NURSE . PATIENT HAS SACRAL EXCORIATIONS, TURN AND REPOSITION Q2 HR APPLY Z-GUARD.
[2019-09-21] MEDS: MEROPENEM 500 MG in IV NS 0.9% 50 ML IV SCH ×2 (09:39→20:27)
--- NOTE | 2019-09-21 11:57 | NUR ---
RN NOTES VU=774 MG/DL, NO COVERAGE GIVEN REFUSED LUNCH, PATIENT STATE "I AM NOT HUNGRY, MAYBE DINNER". EXPLANTED PATIENT IMPORTANT OF EATING, DROPPING BLOOD GLUCOSE LEVEL, STILL REFUSED. REFUSED 1300 MEDICATION. ASSIST TURN AND REPOSTION Q 2 HR, NEEDS ATTENDED AND ANTICIPATED,CALL LIGHT WITHIN TO REACH, CONTINUED MONITORING.
[2019-09-21 13:22] LABS: BASOPHILS % (AUTO) 0.3 % (0.0-2.0); EOSINOPHILS % (AUTO) 1.2 % (0.0-6.0); HEMATOCRIT 27 % (33-45); HEMOGLOBIN 8.9 g/dL (11.5-14.8); LYMPHOCYTES # (AUTO) 1.3 /CMM (0.8-4.8); LYMPHOCYTES % (AUTO) 23.9 % (20.0-44.0); MEAN CORPUSCULAR HGB CONC 33 g/dl (31.0-36.0); MEAN CORPUSCULAR VOLUME 83 fL (82-100); MONOCYTES # (AUTO) 0.3 /CMM (0.1-1.30); MONOCYTES % (AUTO) 5.8 % (2.0-12.0); NEUTROPHILS # (AUTO) 3.6 /CMM (1.8-8.9); NEUTROPHILS % (AUTO) 68.8 % (43.0-81.0); PLATELET COUNT (AUTO) 393 /CMM (150-450); RED BLOOD CELL COUNT(AUTO) 3.24 MIL/uL (4.0-5.2); WHITE BLOOD COUNT (AUTO) 5.2 K/uL (4.3-11.0)
[2019-09-21] MEDS: GLUCERNA SHAKE 237 ML CAN PO SCH ×2 (13:30→17:00)
[2019-09-21 13:33] LABS: ALBUMIN 2.7 g/dL (3.4-5.0); BILIRUBIN,TOTAL 0.5 mg/dL (0.2-1.0); CALCIUM, SERUM 9.1 mg/dL (8.5-10.1); CREATININE 1.6 mg/dL (0.6-1.3); MAGNESIUM 1.8 mg/dL (1.8-2.4); PHOSPHORUS 2.8 mg/dL (2.5-4.9); POTASSIUM 4.3 mmol/L (3.5-5.1); TOTAL PROTEIN, SERUM 7.5 g/dL (6.4-8.2)
--- NOTE | 2019-09-21 16:14 | NUR ---
RN notes Patient refused medication, refused eat, bp 157/96, p-69, notified Dr Lancaster, and get TO order stop Zithromax, and Vasotec 1.25 mg/ml iv push PRN,STOP sbp [id number]. Order taken and carried out.
--- NOTE | 2019-09-21 17:11 | NUR ---
RN NOTES ADMINISTERED VASOTEC 1.25 MG/ML IV PUSH BP 160/98, P-84. CONTINUED MONITORING.
[2019-09-21] MEDS: ENALAPRILAT INJ (1.25 MG/ML) 1.25 MG/ML VIAL IV PRN ×2 (17:12→23:20)
--- NOTE | 2019-09-21 18:30 | NUR ---
RN NOTES MEDICATION WERE ADMINISTERED BP 153/100, P-73, ASSIST PATIENT TURN AND REPOSTION Q2 HR, BS-101 MG/DL NO COVERAGE GIVEN, PATIENT REFUSED DINNER. INFUSING D5NS AT 100 ML/HR ON RIGHT HAND INTACT, CALL LIGHT WITHIN TO REACH, NEEDS ATTENDED AND ANTICIPATED. ENDORSED ONCOMING NURSE FOLLOW PLAN OF CARE.
--- NOTE | 2019-09-21 19:25 | NUR ---
RN OPENING NOTES RECEIVED PATIENT RESTING IN BED, A/OX3, NOTED SLOW TO RESPOND WITH QUESTIONS. DENIES ANY PAIN. ON TELE MONITOR SINUS TACHY WITH HR 100'S. ON 2L OXYGEN VIA NC, TOLERATING WELL, NO SOB OR RESPIRATORY DISTRESS NOTED. IV SITE LEFT HAND 20G FLUSHING AND PATENT, D5NS RUNNING AT 100ML/HR, TOLERATING WELL. DOLAN CATH INTACT AND DRAINING WELL. SAFETY MEASURES IN PLACE; CALL LIGHT WITHIN REACH, BED IS IN LOWEST AND LOCKED POSITION, SIDE RAILS UP X2, BED ALARM ON. WILL CONT TO MONITOR CLOSELY.
[2019-09-21] MEDS: ACETAMINOPHEN 325 MG TABLET PO PRN (20:01)
[2019-09-21] MEDS: ASPIRIN EC 81 MG TABLET.DR PO SCH (20:01)
[2019-09-21] MEDS: SENNOSIDES 8.6 MG TABLET PO SCH (20:02)
[2019-09-21] MEDS: QUETIAPINE FUMARATE 25 MG TABLET PO SCH (20:02)
[2019-09-21] MEDS: INSULIN REGULAR, HUMAN 100 UNIT/ML 3 ML VIAL SQ PRN (21:21)
[2019-09-22] VITALS: BP 163/111
--- NOTE | 2019-09-22 00:59 | NUR ---
SOIL SORT WORKER NOTES RECEIVED RESULT FROM LAB POSITIVE COVID 19
[2019-09-22 04:00] VITALS: BP 155/104
--- NOTE | 2019-09-22 06:50 | NUR ---
RN CLOSING NOTES PT SLEEPING ON BED NO SIGN AND SYMPTOMS OF RESPIRATORY DISTRESS SPO2>95%, ON TELE MONITOR WITH READING SR 90'S NO PAIN COMPLAINT DROPLET ISOLATION MAINTAINED FOR COVID (+) NO SIGNIFICANT CHANGES ON CONDITION NOTED ALL NEEDS ATTENDED SAFETY MEASURE MAINTAINED CALL LIGHT WITHIN REACH WILL ENDORSED TO AM SHIFT NURSE
--- NOTE | 2019-09-22 07:15 | NUR ---
DEDICATED LOCAL TRUCK DRIVER NOTES PATIENT IN BED ON ROOM AIR SATURATING 100%. ABLE TO TALK . IV SITE PATENT AND FLUSHED WELL WITH NORMAL SALINE. NO SOB OR DISCOMFORT NOTED AT THIS TIME.
[2019-09-22] MEDS: BLOOD SUGAR DIAGNOSTIC 1 EACH STRIP IN SCH ×3 (07:55→17:42)
[2019-09-22] MEDS: INSULIN REGULAR, HUMAN 100 UNIT/ML 3 ML VIAL SQ PRN (07:59)
[2019-09-22 08:00] VITALS: BP 142/113
[2019-09-22] MEDS ORDERED: IV D5/0.45 NACL 1,000 ML IV ONE (08:00)
--- NOTE | 2019-09-22 08:00 | NUR ---
WALL TO WALL CARPET INSTALLER NOTES INSULIN NON ADMIN PER SLIDING SCALE BS 101.
[2019-09-22] MEDS: CITRIC ACID/SODIUM CITRATE (BICITRA)15 ML UDC PO SCH ×3 (08:41→17:42)
[2019-09-22] MEDS: VENLAFAXINE XR 75 MG CAP.SR.24H PO SCH (08:42)
[2019-09-22] MEDS: MINOXIDIL (2.5MG) 2.5 MG TABLET PO SCH (08:42)
[2019-09-22] MEDS: METOPROLOL SUCCINATE 25 MG TAB.SR.24H PO SCH (08:45)
[2019-09-22] MEDS: DOCUSATE SODIUM 100 MG CAPSULE PO SCH (08:45)
[2019-09-22 08:47] LABS: BASOPHILS % (AUTO) 0.4 % (0.0-2.0); EOSINOPHILS % (AUTO) 1.1 % (0.0-6.0); HEMATOCRIT 31 % (33-45); LYMPHOCYTES # (AUTO) 1.3 /CMM (0.8-4.8); LYMPHOCYTES % (AUTO) 24.1 % (20.0-44.0); MEAN CORPUSCULAR HGB CONC 32 g/dl (31.0-36.0); MEAN CORPUSCULAR VOLUME 81 fL (82-100); MONOCYTES # (AUTO) 0.3 /CMM (0.1-1.30); MONOCYTES % (AUTO) 6.4 % (2.0-12.0); NEUTROPHILS # (AUTO) 3.7 /CMM (1.8-8.9); PLATELET COUNT (AUTO) 444 /CMM (150-450); RED BLOOD CELL COUNT(AUTO) 3.81 MIL/uL (4.0-5.2); WHITE BLOOD COUNT (AUTO) 5.4 K/uL (4.3-11.0)
[2019-09-22] MEDS: HEPARIN SODIUM, PORCINE 5000 UNITS/1 ML VIAL SQ SCH (08:47)
[2019-09-22] MEDS: GLUCERNA SHAKE 237 ML CAN PO SCH ×3 (08:53→17:42)
[2019-09-22] MEDS ORDERED: AMLODIPINE BESYLATE 5 MG TABLET PO SCH (09:00)
[2019-09-22] MEDS: MEROPENEM 500 MG in IV NS 0.9% 50 ML IV SCH (09:13)
[2019-09-22] MEDS: Z GUARD REMEDY 2 OZ OINT TP SCH (09:14)
[2019-09-22 09:18] LABS: ALBUMIN 2.9 g/dL (3.4-5.0); BILIRUBIN,TOTAL 0.5 mg/dL (0.2-1.0); CALCIUM, SERUM 9.3 mg/dL (8.5-10.1); CREATININE 1.4 mg/dL (0.6-1.3); MAGNESIUM 1.6 mg/dL (1.8-2.4); PHOSPHORUS 3.1 mg/dL (2.5-4.9); POTASSIUM 4.1 mmol/L (3.5-5.1); TOTAL PROTEIN, SERUM 8.1 g/dL (6.4-8.2)
[2019-09-22] MEDS: Magnesium 1GM/D5W 100ML PREMIX 100 ML IV SCH ×2 (11:19→12:49)
[2019-09-22 12:00] VITALS: BP 138/90
--- NOTE | 2019-09-22 12:36 | NUR ---
STRUCTURAL METAL FABRICATOR APPRENTICE NOTES NO INSULIN GIVEN DUE TO BG98 . PER SLIDING SCALE INSULIN NOT ADMINISTRATED.
--- NOTE | 2019-09-22 14:06 | NUR ---
spoke with case management snf need 24 hours clearance from department of health prior to discharge. PER DR. HERMAN HE WILL PUT DISCHARGE ORDER ANYWAY AND SEND PATIENT TO SNF ONCE ACCEPTED.CM MADE AWARE.
[2019-09-22 16:00] VITALS: BP 150/97
--- NOTE | 2019-09-22 17:15 | NUR ---
SLEEPING BAG FILLER NOTES PATIENT WAS TRANSFERRED TO [facility] BY AMBULANCE. ALL BELONGINGS RETURNED. HEART MONITOR AND IV REMOVED. DOLAN IN PLACE, PATENT. SACRUM PICTURE TAKEN AND PLACED IN CHART. REPORT GIVEN TO FANNY MCKEON .
--- NOTE | 2019-09-22 18:00 | NUR ---
HOSE COUPLING JOINER NOTES BROTHER NEXT OF KIN NOTIFIED ABOUT THE TRANSPORTATION TO [facility].
== END 2019-09-22 18:00 | DRG 871 ==
LOC: ER 11:35 → TELE2 13:34 → TELE-TD 16:09 → TELE1 09-18 09:32
PROVIDERS: ADMIT Legal Medicine; ATTEND Legal Medicine
DX: A41.89 Other specified sepsis (principal); G93.41 Metabolic encephalopathy; J12.89 Other viral pneumonia; N17.0 Acute kidney failure with tubular necrosis; U07.1 COVID-19; G93.1 Anoxic brain damage, not elsewhere classified; N39.0 Urinary tract infection, site not specified; J44.0 Chronic obstructive pulmonary disease with (acute) lower respiratory infection; G81.00 Flaccid hemiplegia affecting unspecified side; E87.2 Acidosis; E87.0 Hyperosmolality and hypernatremia; Q21.0 Ventricular septal defect; M62.82 Rhabdomyolysis; I12.9 Hypertensive chronic kidney disease with stage 1 through stage 4 chronic kidney disease, or unspecified chronic kidney disease; N18.9 Chronic kidney disease, unspecified; E11.22 Type 2 diabetes mellitus with diabetic chronic kidney disease; K21.9 Gastro-esophageal reflux disease without esophagitis; E83.42 Hypomagnesemia; E11.649 Type 2 diabetes mellitus with hypoglycemia without coma; I25.2 Old myocardial infarction; E78.5 Hyperlipidemia, unspecified; Z79.84 Long term (current) use of oral hypoglycemic drugs; Z79.899 Other long term (current) drug therapy; T50.1X5A Adverse effect of loop [high-ceiling] diuretics, initial encounter; T46.4X5A Adverse effect of angiotensin-converting-enzyme inhibitors, initial encounter; Y92.10 Unspecified residential institution as the place of occurrence of the external cause
CPT/HCPCS: 36415; 71045-TC; 76770-TC; 80048-TC; 80053-TC; 81000-TC; 82550-TC; 82553; 82570-TC; 82728-TC; 82962-TC; 83605-TC; 83615-TC; 83735-TC; 83880; 83970; 84100-TC; 84155; 84155-TC; 84165; 84300-TC; 84484-TC; 85025-TC; 85730-TC; 86140-TC; 87040-TC; 87081-TC; 87086-TC; 87186-TC; A4216; G0378; J0456; J0696; J1610; J1644; J1815; J1956; J2185; J2543; J3475; J3490; J7030; J7042; J7060